=== PATIENT | male | born 2000 | race Caucasian/White ===

== ENCOUNTER 2025-06-06 08:52 | Outpatient (CLI) | payer OTHER, SELFPAY ==
--- OUTSIDE RECORDS SUMMARY | 2025-06-06 09:02 | XMS_ITS | Continuity of Care Document ---
Author Organization [facility] Address [address] [place] [address] Phone Care Team Providers Care Calender Wind Up Helper Name Role Phone Brittni Guillaume Unavailable Unavailable Advance Directives Directive Yes / No Effective Date File Name No Information Encounters Encounter Description Practice Location Reason(s) For Visit Diagnoses Date Provider Providers Copied on Encounter [facility], [address], [place], [place], [id number], [place] tel:[phone] [facility] No Information [id number] Aundrea Elkins. [address] , [address], [place], [address], [place]. tel:[phone] Family History Family Member Type Diagnosis Age At Onset No Information Payers Payer name Insurance type Covered democrat ID Authoriza tion(s) No Information Social History Type Description Quantity Date Captured Comments Sex Male Smoking Status No Information Chief Complaint And Reason For Visit No Information Reason For Referral Reason For Referral No Information History Of Present Illness Encounter Date Complaint History Of Prese nt Illness No Information Functional Status Date Functional Assessmen t No Information Instructions Date Instruction Additional Infor mation No Information Assessments Type Assessment Date No Information Patient Care Teams Name Effective Dates (start - stop) Status Members No Information
--- OUTSIDE RECORDS SUMMARY | 2025-06-06 09:02 | XMS_ITS | Continuity of Care Document ---
Author Name [facility] Organization [facility] Care Team Providers Care Retouching Operator Name Role Phone [facility] Unavailable Unavailable Problems Combined list of problems from Department of Defense and Veterans Affairs facilities. It does not include entries that were removed or entered in error. Problem Status Onset Date Problem Type Date of Resolution Comments Source Hypermetropia, bilateral Active 10/22/18 99 Condition [facility]D Monocular esotropia, right eye Active 10/22/18 99 Condition DoD Other intervertebral disc displacement, lumbosacral region Active 10/21/18 99 Condition DoD Meralgia paresthetica, left lower limb Active 10/21/18 99 Condition [facility]D Low back pain, unspecified Active 10/21/18 99 Condition DoD Male infertility, unspecified Active 10/21/18 99 Condition [facility] Bilateral regular astigmatism Active Condition [facility] Post-traumatic stress disorder, chronic Active Condition [facility] LBP - Low back pain Active Condition 10 [facility] Left knee pain Active Condition [facility] Lumbar disc prolapse with radiculopathy Active Condition [facility] Male infertility Active Condition [facility] Paresthesia of lower limb Active Condition [facility] Tension headache Active Condition [facility] Chronic back pain Active Condition [facility] Exposure to potentially hazardous substance ([facility] [id number]) Active Condition May 29 5 Entered By: DEE TAM Comment: Entered automatically through [facility] Problem List documentation program [facility] Gastroesophageal reflux disease Active Condition [facility] Migraine Active Condition [facility] Regular astigmatism, bilateral Active Condition [facility] Diagnosis: ICD-10-CM G43.109 Migraine with aura, not intractable, w/o status migrainosus Active Diagnosis [facility] Diagnosis: ICD-10-CM Z71.89 Other specified counseling Active Diagnosis [facility] Diagnosis: ICD-10-CM G43.119 Migraine with aura, intractable, without status migrainosus Active Diagnosis [facility] Diagnosis: ICD-10-CM Z71.9 Counseling, unspecified Active Diagnosis [facility] Medications Combined list of outpatient medications from Department of Defense and Veterans Affairs facilities.Medications provided include 1) outpatient medications from the last 15 months, and 2) patient-reported medications. Medication Details Route Status Patient Instructions Prescription Expires Prescription Number Last Dispense Date Ordering Provider Order Date Order Qty Source CeleBREX 200 mg oral capsule 1 cap(s), Oral, Daily, # 45 cap(s), 1 total refill(s ), Maintena nce, Pharmacy : [facility] Oral (given by mouth) Discont inued 04/30/2024 3 2023 45.0 [facility] celecoxib 100 mg oral capsule TAKE ONE CAPSULE BY MOUTH EVERY DAY (MAY INCREASE TO TWICE A DAY NEEDED PAIN), # 45 EA, 2 total refill(s ), Acute Complet ed 07/22/2023 3 2022 45.0 Ambulat ory Pharmac y DULoxetine 60 mg oral delayed release capsule TAKE ONE CAPSULE BY MOUTH EVERY DAY, # 30 EA, 1 total refill(s ), Acute Complet ed 07/22/2023 3 2022 30.0 Ambulat ory Pharmac y ketoconazol e 2% topical shampoo APPLY TO AFFECTED AREAS EVERY DAY DIRECTED , # 120 mL, 2 total refill(s ), Acute Complet ed 07/22/2023 3 2022 120.0 Ambulat ory Pharmac y pregabalin 75 mg oral capsule 1 cap(s), Oral, BID, Increase to 1 cap in AM and 2 caps in PM after 1 week; then 2 caps in AM and PM after 1 week (300mg daily), # 180 cap(s), 3 total refill(s ), Maintena nce, Up-titra ting to total daily dose 300mg, Pharmacy : [facility] Oral (given by mouth) Complet ed 09/30/2023 3 2022 180.0 [facility] pregabalin 75 mg oral capsule 80 cap(s), 0 Refill(s ), 0 total refill(s ), Soft Stop Discont inued 09/30/20232022 [facility] Refresh Dry Eye Therapy Eye-Both , PRN allergy symptoms , 0 total refill(s ), Maintena nce Both eyes Discont inued 04/30/20242023 [facility] Refresh Plus 0.5% ophthalmic solution UD See Instruct ions, PRN dry eyes, Instill 1 drop in each eye as needed for dryness, # 30 EA, 11 total refill(s ), Maintena nce, Can substitu te for like formulat ion, Pharmacy : [facility] Ordered 4 2023 30.0 [facility] SUMATRIPTAN SUCCINATE 25MG TAB TAKE ONE TABLET BY MOUTH ONE-TIME FOR MIGRAINE HEADACHE TAKE AT ONSET OF HEADACHE . MAY REPEAT AFTER 2 HOURS. NOT TO EXCEED 2 TABLETS IN 24 HOURS. ORAL ACTIVE 06/23/2025 [id number] ANTHONY KNOTT AMMAD T 2024 9 [facility] Allergies, Adverse Reactions, Alerts Combined list of allergies from Department of Defense and Veterans Affairs facilities. It does not include entries that were removed or entered in error. Substance Category Reaction Severity Reaction type Status Date Reported Comments Source No Known Allergies Drug allergy (disorder) active 07/28/2017 Homero MIGUEL, Bharat [place] Immunizations Combined list of available immunizations from the Department of Defense and Veterans Affairs facilities. Immunization Series Date Given Administered By Site Reaction Lot Number CVX Code Drug Appointment Clerk Status Comments Source influenza virus vaccine, inactivated 2022 SANKET Sandoval jamey, left (delt oid) [id number] 158 Laura, A [employer] complet ed influenza virus vaccine, inactivat ed 07/26/23 Given [facility] influenza, injectable, quadrivalent- pf 2022 EMILIE CASAS [id number] 150 complet ed Result Comment: Route: Unknown Manufactu rer: OTH (SEQ) [facility] Human Papillomaviru s 9-valent vaccine 2022 [id number] 165 Merck & Company Inc complet ed Human Papilloma virus 9-valent vaccine 01/26/23 Given Ambulat ory Pharmac y Human Papillomaviru s 9-valent vaccine 2022 zzRig ht Arm [id number] 165 Merck & Company Inc complet ed Human Papilloma virus 9-valent vaccine 01/26/23 Given Ambulat ory Pharmac y Human Papillomaviru s 9-valent vaccine 2 2022 YESSICA ROBLEDO [id number] 165 Merck (MSD) complet ed Human Papilloma virus 9-valent vaccine DoD Human Papillomaviru s 9-valent vaccine 2022 zzLef t Arm [id number] 165 ImmuRx & Company Inc complet ed Human Papilloma virus 9-valent vaccine 11/24/22 Given Ambulat ory Pharmac y Human Papillomaviru s 9-valent vaccine 1 2022 YVES DAN [id number] 165 Merck (MSD) complet ed Human Papilloma virus 9-valent vaccine DoD influenza, injectable, quadrivalent- pf 2021 zzRig ht Arm [id number] 150 GlaxAciex TherapeuticsithKli ne complet ed influenza , injectabl e, quadrival ent-pf 08/17/22 Given Ambulat ory Pharmac y COVID Vaccine Moderna 2020 zzLef t Arm [id number] 207 complet ed COVID Vaccine Moderna 10/09/21 Given Ambulat ory Pharmac y COVID Vaccine Moderna 2020 [id number] complet ed COVID Vaccine Moderna 10/09/21 Given Ambulat ory Pharmac y SARS-COV-2 (COVID-19) vaccine, mRNA, spike protein, LNP, preservative free, 100 mcg or 50 mcg dose 3 2020 GUERRERO DUONG [id number] 207 Moderna [place], Inc. (MOD) complet ed SARS-COV- 2 (COVID-19 ) vaccine, mRNA, spike protein, LNP, preservat tom free, 100 mcg or 50 mcg dose DoD influenza, injectable, quadrivalent- pf 2020 zzRig ht Arm [id number] 150 GlaxoSmithKli ne complet ed influenza , injectabl e, quadrival ent-pf 09/09/21 Given Ambulat ory Pharmac y influenza, injectable, quadrivalent- pf 2020 [id number] 150 GlaxoSmithKli ne complet ed influenza , injectabl e, quadrival ent-pf 09/09/21 Given Ambulat ory Pharmac y Influenza, injectable, quadrivalent, preservative free 1 2020 ADAL VALENCIA [id number] 150 [facility] ([facility]) complet ed Influenza , injectabl e, quadrival ent, preservat tom free DoD COVID Vaccine Moderna 2020 TRS 207 complet ed COVID Vaccine Moderna 03/03/21 Given Ambulat ory Pharmac y COVID Vaccine Moderna 2020 TRS 207 complet ed COVID Vaccine Moderna 03/03/21 Given Ambulat ory Pharmac y COVID-19, mRNA, LNP-S, PF, 100 mcg or 50 mcg dose 2020 BRITTANY Moderna US, Inc. (MOD) Not Given COVID-19, mRNA, LNP-S, PF, 100 mcg or 50 mcg dose DoD SARS-COV-2 (COVID-19) vaccine, mRNA, spike protein, LNP, preservative free, 100 mcg or 50 mcg dose 0 2020 Unknown, Provider TRS 207 Moderna [place], Inc. (MOD) complet ed SARS-COV- 2 (COVID-19 ) vaccine, mRNA, spike protein, LNP, preservat tom free, 100 mcg or 50 mcg dose DoD influenza, injectable, quadrivalent- pf 2020 Brandon t Arm [id number] 150 Seq[employer] complet ed influenza , injectabl e, quadrival ent-pf 02/06/21 Given Ambulat ory Pharmac y influenza virus vaccine, inactivated 2020 [id number] 88 [employer] complet ed influenza virus vaccine, inactivat ed 02/06/21 Given Ambulat ory Pharmac y influenza virus vaccine, inactivated 2020 [id number] 88 [employer] complet ed influenza virus vaccine, inactivat ed 02/06/21 Given Ambulat ory Pharmac y Influenza, injectable, Madin Stephany Canine Kidney, quadrivalent with preservative 1 2020 [id number] 660 186 [employer] (SEQ) complet ed Influenza , injectabl e, Madin Stephany Canine Kidney, quadrival ent with preservat tom DoD Influenza, injectable, quadrivalent, preservative free 1 2020 WILBERT MAJANO [id number] 660 150 [employer] (SEQ) complet ed Influenza , injectabl e, quadrival ent, preservat tom free DoD COVID Vaccine Moderna 2020 TRS 207 complet ed COVID Vaccine Moderna 02/03/21 Given Ambulat ory Pharmac y COVID Vaccine Moderna 2020 TRS 207 complet ed COVID Vaccine Moderna 02/03/21 Given Ambulat ory Pharmac y COVID-19, mRNA, LNP-S, PF, 100 mcg or 50 mcg dose 2020 WILLIE, () Not Given COVID-19, mRNA, LNP-S, PF, 100 mcg or 50 mcg dose DoD SARS-COV-2 (COVID-19) vaccine, mRNA, spike protein, LNP, preservative free, 100 mcg or 50 mcg dose 0 2020 Unknown, Provider TRS 207 Moderna [employer] Inc[employer] (MOD) complet ed SARS-COV- 2 (COVID-19 ) vaccine, mRNA, spike protein, LNP, preservat tom free, 100 mcg or 50 mcg dose DoD influenza, injectable, quadrivalent 2018 [id number] 158 [employer] complet ed influenza , injectabl e, quadrival ent 09/28/19 Given Ambulat ory Pharmac y influenza, injectable, quadrivalent 2018 [id number] 507 158 [employer] complet ed influenza , injectabl e, quadrival ent 09/28/19 Given Ambulat ory Pharmac y influenza, injectable, quadrivalent, contains preservative 1 2018 [id number] 507 158 Se[employer] (SEQ) complet ed influenza , injectabl e, quadrival ent, contains preservat tom DoD anthrax vaccine 2018 [id number] [employer] complet ed anthrax vaccine 05/18/19 Given Ambulat ory Pharmac y anthrax vaccine 2018 [id number] 24 [employer] complet ed anthrax vaccine 05/18/19 Given Ambulat ory Pharmac y anthrax vaccine 3 2018 [id number] 24 [employer] [place] (MIP) complet ed anthrax vaccine DoD anthrax vaccine 2017 zzLef t Arm [id number] 24 [employer] complet ed anthrax vaccine 07/07/18 Given Ambulat ory Pharmac y poliovirus vaccine, inactivated 2017 [id number] 10 sanofi pasteur complet ed polioviru s vaccine, inactivat ed 07/07/18 Given Ambulat ory Pharmac y anthrax vaccine 2017 [id number] 24 [employer] complet ed anthrax vaccine 07/07/18 Given Ambulat ory Pharmac y poliovirus vaccine, inactivated 2017 [id number] 10 sanofi pasteur complet ed polioviru s vaccine, inactivat ed 07/07/18 Given Ambulat ory Pharmac y influenza, injectable, quadrivalent [facility] [id number] 158 [employer] complet ed influenza , injectabl e, quadrival ent 07/07/18 Given Ambulat ory Pharmac y poliovirus vaccine, inactivated 2 2017 [id number] 10 Sanofi Pasteur ([facility]) complet ed polioviru s vaccine, inactivat ed DoD anthrax vaccine 2 2017 [id number] 24 [employer] [place] ([facility]) complet ed anthrax vaccine DoD influenza, injectable, quadrivalent, contains preservative 1 2017 [id number] 1A 158 Se[employer] (SEQ) complet ed influenza , injectabl e, quadrival ent, contains preservat tom DoD typhoid Vi capsular polysaccharid e vac 2017 zzArturo ht Arm [id number] 101 sanofi pasteur complet ed typhoid Vi capsular polysacch aride vac 03/24/18 Given Ambulat ory Pharmac y typhoid Vi capsular polysaccharid e vac 2017 [id number] 101 sanofi pasteur complet ed typhoid Vi capsular polysacch aride vac 03/24/18 Given Ambulat ory Pharmac y anthrax vaccine 2017 [id number] 24 [employer] complet ed anthrax vaccine 03/24/18 Given Ambulat ory Pharmac y anthrax vaccine 2017 zzLef t Arm [id number] 24 Unknown complet ed anthrax vaccine 03/24/18 Given Ambulat ory Pharmac y anthrax vaccine 1 2017 IRIS WALKER [id number] 24 Unknown (UNK) complet ed anthrax vaccine DoD typhoid Vi capsular polysaccharid e vaccine 1 2017 IRIS WALKER [id number] 101 Sanofi Pasteur ([facility]) complet ed typhoid Vi capsular polysacch aride vaccine DoD hepatitis A-hepatitis B vaccine 2017 zzLef t Arm [id number] 104 GlaxoSmithKli ne complet ed hepatitis A-hepatit is B vaccine 01/27/18 Given Ambulat ory Pharmac y hepatitis A-hepatitis B vaccine 2017 [id number] 104 GlaxoSmithKli ne complet ed hepatitis A-hepatit is B vaccine 01/27/18 Given Ambulat ory Pharmac y hepatitis A-hepatitis B vaccine 2017 [id number] 104 GlaxoSmithKli ne complet ed hepatitis A-hepatit is B vaccine 01/27/18 Given Ambulat ory Pharmac y hepatitis A and hepatitis B vaccine 3 2017 YASMINE ROCHA [id number] 104 [facility] ([facility]) complet ed hepatitis A and hepatitis B vaccine DoD Influenza, inj, MDCK, quadrivalent- pf 2016 [id number] 171 Se[employer] complet ed Influenza , inj, MDCK, quadrival ent-pf 08/30/17 Given Ambulat ory Pharmac y Influenza, inj, MDCK, quadrivalent- pf 2016 [id number] 171 Se[employer] complet ed Influenza , inj, MDCK, quadrival ent-pf 08/30/17 Given Ambulat ory Pharmac y Influenza, injectable, Madin [place] Canine Kidney, preservative free, quadrivalent 1 2016 [id number] 171 Se[employer] (SEQ) comple t ed Influenza , injectabl e, Madin Stephany Canine Kidney, preservat tom free, quadrival ent DoD measles, mumps and rubella virus vaccine 1 2016 UNK 03 Unknown (UNK) Not Given measles, mumps and rubella virus vaccine DoD hepatitis A-hepatitis B vaccine 2016 [id number] 104 GlaxoSmithKli ne complet ed hepatitis A-hepatit is B vaccine 07/28/17 Given Ambulat ory Pharmac y hepatitis A-hepatitis B vaccine 2016 [id number] 104 GlaxoSmithKli ne complet ed hepatitis A-hepatit is B vaccine 07/28/17 Given Ambulat ory Pharmac y hepatitis A-hepatitis B vaccine 2016 [id number] 104 [employer] - Dein [employer] im LebenithKli ne complet ed hepatitis A-hepatit is B vaccine 07/28/17 Given Ambulat ory Pharmac y varicella virus vaccine 2016 [id number] 21 Merck & Company Inc complet ed varicella virus vaccine 07/28/17 Given Ambulat ory Pharmac y varicella virus vaccine 2016 [id number] 21 Merck & Company Inc complet ed varicella virus vaccine 07/28/17 Given Ambulat ory Pharmac y varicella virus vaccine 2 2016 [id number] 21 Merck (MSD) complet ed varicella virus vaccine DoD hepatitis A and hepatitis B vaccine 2 2016 [id number] 104 [facility] ([facility]) complet ed hepatitis A and hepatitis B vaccine DoD adenovirus vaccine, live 2016 [id number] 143 Teva Pharmaceutica ls complet ed adenoviru s vaccine, live 06/24/17 Given Ambulat ory Pharmac y hepatitis A-hepatitis B vaccine 2016 [id number] 104 Teva Pharm[employer] ls complet ed hepatitis A-hepatit is B vaccine 06/24/17 Given Ambulat ory Pharmac y varicella virus vaccine 2016 [id number] 21 Merck & Company Inc complet ed varicella virus vaccine 06/24/17 Given Ambulat ory Pharmac y hepatitis A-hepatitis B vaccine 2016 [id number] 104 Teva Pharmaceutica ls complet ed hepatitis A-hepatit is B vaccine 06/24/17 Given Ambulat ory Pharmac y adenovirus vaccine, live 2016 [id number] 5 143 Teva Pharmaceutica ls complet ed adenoviru s vaccine, live 06/24/17 Given Ambulat ory Pharmac y hepatitis A-hepatitis B vaccine 2016 [id number] 104 Teva Pharmaceutica ls complet ed hepatitis A-hepatit is B vaccine 06/24/17 Given Ambulat ory Pharmac y varicella virus vaccine 2016 [id number] 21 Merck & Company Inc complet ed varicella virus vaccine 06/24/17 Given Ambulat ory Pharmac y varicella virus vaccine 1 2016 [id number] 21 Merck (MSD) complet ed varicella virus vaccine DoD hepatitis A and hepatitis B vaccine 1 2016 [id number] 104 [facility] ([facility]) complet ed hepatitis A and hepatitis B vaccine DoD Adenovirus, type 4 and type 7, live, oral 1 2016 [id number] 5 143 [facility] ([facility]) complet ed Adenoviru s, type 4 and type 7, live, oral DoD meningococcal A,C,Y,W-135 (MCV4P) 2016 [id number] 114 [employer] complet ed meningoco ccal A,C,Y,W-1 35 (MCV4P) 06/22/17 Given Ambulat ory Pharmac y tetanus, diphtheria, acellular pertu is 2016 [id number] 115 sanofi pasteur complet ed tetanus, diphtheri a, acellular pertussis 06/22/17 Given Ambulat ory Pharmac y poliovirus vaccine, inactivated 2016 [id number] 10 sanofi pasteur complet ed polioviru s vaccine, inactivat ed 06/22/17 Given Ambulat ory Pharmac y tetanus, diphtheria, acellular pertu is 2016 [id number] 115 sanofi pasteur complet ed tetanus, diphtheri a, acellular pertussis 06/22/17 Given Ambulat ory Pharmac y meningococcal A,C,Y,W-135 (MCV4P) 2016 [id number] 114 [employer] complet ed meningoco ccal A,C,Y,W-1 35 (MCV4P) 06/22/17 Given Ambulat ory Pharmac y poliovirus vaccine, inactivated 1 2016 [id number] 10 Sanofi Pasteur ([facility]) complet ed polioviru s vaccine, inactivat ed DoD meningococcal polysaccharid e (groups A, C, Y and W-135) diphtheria toxoid conjugate vaccine (MCV4P) 1 2016 [id number] 114 [employer] (SEQ) comple t ed meningoco ccal polysacch aride (groups A, C, Y and W-135) diphtheri a toxoid conjugate vaccine (MCV4P) DoD tetanus toxoid, reduced diphtheria toxoid, and acellular pertu is vaccine, adsorbed 1 2016 [id number] 115 Sanofi Pasteur ([facility]) complet ed tetanus toxoid, reduced diphtheri a toxoid, and acellular pertussis vaccine, adsorbed DoD Results Combined list of recent chemistry, hematology and other laboratory results from Department of Defense and Veterans Affairs, ranging from 15 months to all on record, depending upon the facility. Order Name Results Value Reference Range Date Interpretation Specimen Comments Source LIPID PANEL (STL) CHOLESTERO L [MASS/VOLU ME] IN SERUM OR PLASMA 185 mg/dL 0 - 200 05/14 Specimen Type: PLASMA Comment: No hemolysis noted. Ordering Provider: SUKUMAR KNOTT Report Released Date/Time: May 08, 2025 11:40 AM Reporting Lab: [facility] [address] [facility] [phone] Performing Lab: [facility] [address] [facility] [phone] [facility] LIPID PANEL (STL) TRIGLYCERI DE [MASS/VOLU ME] IN SERUM OR PLASMA 72 mg/dL 0 - 150 05/14 Specimen Type: PLASMA Comment: No hemolysis noted. Ordering Provider: SUKUMAR KNOTT Report Released Date/Time: May 08, 2025 11:40 AM Reporting Lab: [facility] [address] [facility] [phone] Performing Lab: [facility] [address] [facility] [phone] [facility] LIPID PANEL (STL) CHOLESTERO L IN LDL [MASS/VOLU ME] IN SERUM OR PLASMA BY MARY Esposito 117 mg/dL 05/14 Specimen Type: PLASMA Comment: No hemolysis noted. Ordering Provider: SUKUMAR KNOTT Report Released Date/Time: May 08, 2025 11:40 AM Reporting Lab: [facility] [address] [facility] [phone] Performing Lab: [facility] [address] [facility] [phone] [facility] LIPID PANEL (STL) CHOLESTERO L IN HDL [MASS/VOLU ME] IN SERUM OR PLASMA 54 mg/dL 40 05/14 Specimen Type: PLASMA Comment: No hemolysis noted. Ordering Provider: SUKUMAR KNOTT Report Released Date/Time: May 08, 2025 11:40 AM Reporting Lab: [facility] [address] [facility] [phone] Performing Lab: [facility] [address] [facility] [phone] [facility] CBC LEUKOCYTES [#/VOLUME] IN BLOOD BY AUTOMATED COUNT 4.1 10*3/uL 3.6 - 11.2 05/14 Specimen Type: BLOOD No comment entered. Ordering Provider: SUKUMAR KNOTT Report Released Date/Time: May 08, 2025 11:40 AM Reporting Lab: [facility] [address] [place] [phone] Performing Lab: [facility] [address] [place] [phone] [facility] CBC ERYTHROCYT ES [#/VOLUME] IN BLOOD BY AUTOMATED COUNT 5.21 10*6/uL 4.10 - 5.70 05/14 Specimen Type: BLOOD No comment entered. Ordering Provider: SUKUMAR KNOTT Report Released Date/Time: May 08, 2025 11:40 AM Reporting Lab: [facility] [address] [place] [phone] Performing Lab: [address] [phone] [facility] CBC HEMOGLOBIN [MASS/VOLU ME] IN BLOOD 15.2 g/dL 13.1 - 16.8 05/14 Specimen Type: BLOOD No comment entered. Ordering Provider: SUKUMAR KNOTT Report Released Date/Time: May 08, 2025 11:40 AM Reporting Lab: [facility] [address] [place] [phone] Performing Lab: [facility] [address] [place] [phone] [facility] CBC HEMATOCRIT [VOLUME FRACTION] OF BLOOD 44.9 38.2 - 48.4 05/14 Specimen Type: BLOOD No comment entered. Ordering Provider: SUKUMAR KNOTT Report Released Date/Time: May 08, 2025 11:40 AM Reporting Lab: [facility] [address] [place] [phone] Performing Lab: [facility] [address] [place] [phone] [facility] CBC MCV [ENTITIC VOLUME] BY AUTOMATED COUNT 86.2 fL 80.0 - 100.0 05/14 Specimen Type: BLOOD No comment entered. Ordering Provider: SUKUMAR KNOTT Report Released Date/Time: May 08, 2025 11:40 AM Reporting Lab: [address] [phone] Performing Lab: [facility] [address] [place] [phone] [facility] CBC MCH [ENTITIC MASS] BY AUTOMATED COUNT 29.2 pg 27.0 - 34.0 05/14 Specimen Type: BLOOD No comment entered. Ordering Provider: SUKUMAR KNOTT Report Released Date/Time: May 08, 2025 11:40 AM Reporting Lab: [address] [phone] Performing Lab: [address] [phone] [facility] CBC MCHC [MASS/VOLU ME] BY AUTOMATED COUNT 33.9 g/dL 33.0 - 36.0 05/14 Specimen Type: BLOOD No comment entered. Ordering Provider: SUKUMAR KNOTT Report Released Date/Time: May 08, 2025 11:40 AM Reporting Lab: [facility] [address] [place] [phone] Performing Lab: [facility] [address] [place] [phone] [facility] CBC PLATELETS [#/VOLUME] IN BLOOD BY AUTOMATED COUNT 347 10*3/uL 150 - 400 05/14 Specimen Type: BLOOD No comment entered. Ordering Provider: SUKUMAR KNOTT Report Released Date/Time: May 08, 2025 11:40 AM Reporting Lab: [address] [address] Performing Lab: [place] [id number] [facility] [phone] [facility] CBC PLATELET MEAN VOLUME [ENTITIC VOLUME] IN BLOOD BY AUTOMATED COUNT 9.9 fL 7.5 - 11.2 05/14 Specimen Type: BLOOD No comment entered. Ordering Provider: SUKUMAR KNOTT Report Released Date/Time: May 08, 2025 11:40 AM Reporting Lab: [facility] [address] [place] [phone] Performing Lab: [facility] [address] [place] [phone] [facility] CBC ERYTHROCYT E DISTRIBUTI ON WIDTH [RATIO] BY AUTOMATED COUNT 11.8 11.8 - 15.1 05/14 Specimen Type: BLOOD No comment entered. Ordering Provider: SUKUMAR KNOTT Report Released Date/Time: May 08, 2025 11:40 AM Reporting Lab: [facility] [address] [place] [phone] Performing Lab: [facility] [address] [place] [phone] [facility] CBC LYMPHOCYTE S/100 LEUKOCYTES IN BLOOD BY AUTOMATED COUNT 41 05/14 Specimen Type: BLOOD No comment entered. Ordering Provider: SUKUMAR KNOTT Report Released Date/Time: May 08, 2025 11:40 AM Reporting Lab: [facility] [address] [place] [phone] Performing Lab: [facility] [address] [place] [phone] [facility] CBC MONOCYTES/ 100 LEUKOCYTES IN BLOOD BY AUTOMATED COUNT 11 05/14 Specimen Type: BLOOD No comment entered. Ordering Provider: SUKUMAR KNOTT Report Released Date/Time: May 08, 2025 11:40 AM Reporting Lab: [facility] [address] [place] [phone] Performing Lab: [facility] [address] [place] [phone] [facility] CBC NEUTROPHIL S/100 LEUKOCYTES IN BLOOD BY AUTOMATED COUNT 46 05/14 Specimen Type: BLOOD No comment entered. Ordering Provider: SUKUMAR KNOTT Report Released Date/Time: May 08, 2025 11:40 AM Reporting Lab: [facility] [address] [facility] [phone] Performing Lab: [facility] [address] [place] [phone] [facility] CBC EOSINOPHIL S/100 LEUKOCYTES IN BLOOD BY AUTOMATED COUNT 1 05/14 Specimen Type: BLOOD No comment entered. Ordering Provider: SUKUMAR KNOTT Report Released Date/Time: May 08, 2025 11:40 AM Reporting Lab: [facility] [address] [place] [phone] Performing Lab: [facility] [address] [place] [phone] CBC BASOPHILS/ 100 LEUKOCYTES IN BLOOD BY AUTOMATED COUNT 1 05/14 Specimen Type: BLOOD No comment entered. Ordering Provider: SUKUMAR KNOTT Report Released Date/Time: May 08, 2025 11:40 AM Reporting Lab: [facility] [address] [place] [phone] Performing Lab: [facility] [address] [place] [phone] [facility] CBC LYMPHOCYTE S [#/VOLUME] IN BLOOD BY AUTOMATED COUNT 1.67 10*3/uL 0.77 - 4.50 05/14 Specimen Type: BLOOD No comment entered. Ordering Provider: SUKUMAR KNOTT Report Released Date/Time: May 08, 2025 11:40 AM Reporting Lab: [facility] [address] [place] [phone] Performing Lab: [facility] [address] [place] [phone] [facility] CBC MONOCYTES [#/VOLUME] IN BLOOD BY AUTOMATED COUNT 0.45 10*3/uL 0.19 - 0.80 05/14 Specimen Type: BLOOD No comment entered. Ordering Provider: SUKUMAR KNOTT Report Released Date/Time: May 08, 2025 11:40 AM Reporting Lab: [facility] [address] [place], [place] [phone] Performing Lab: [facility] [address] [place] [phone] [facility] CBC NEUTROPHIL S [#/VOLUME] IN BLOOD BY AUTOMATED COUNT 1.88 10*3/uL 2.10 - 8.00 05/14 L Specimen Type: BLOOD No comment entered. Ordering Provider: SUKUMAR KNOTT Report Released Date/Time: May 08, 2025 11:40 AM Reporting Lab: [facility] [address] [place] [phone] Performing Lab: [address] [phone] [place] [address] CBC EOSINOPHIL S [#/VOLUME] IN BLOOD BY AUTOMATED COUNT 0.04 10*3/uL 0.00 - 0.60 05/14 Specimen Type: BLOOD No comment entered. Ordering Provider: SUKUMAR KNOTT Report Released Date/Time: May 08, 2025 11:40 AM Reporting Lab: [facility] [address] [place] [phone] Performing Lab: [address] [phone] [place] [address] CBC BASOPHILS [#/VOLUME] IN BLOOD BY AUTOMATED COUNT 0.02 10*3/uL 0.00 - 0.20 05/14 Specimen Type: BLOOD No comment entered. Ordering Provider: SUKUMAR KNOTT Report Released Date/Time: May 08, 2025 11:40 AM Reporting Lab: [facility] [address] [place] [phone] Performing Lab: [facility] [address] [place] [phone] [facility] HGA1C HEMOGLOBIN A1C/HEMOGL OBIN.TOTAL IN BLOOD 5.4 4.0 - 6.0 05/14 Specimen Type: BLOOD No comment entered. Ordering Provider: SUKUMAR KNOTT Report Released Date/Time: May 08, 2025 11:40 AM Reporting Lab: [facility] [address] [place] [phone] Performing Lab: [facility] [address] [place] [phone] [place] [address] TSH W/ REFLEX FT4 (STL) THYROTROPI N [UNITS/VOL UME] IN SERUM OR PLASMA 0.424 u[IU]/mL 0.47 - 5 05/14 L Specimen Type: PLASMA No comment entered. Ordering Provider: SUKUMAR KNOTT Report Released Date/Time: May 08, 2025 11:40 AM Reporting Lab: [facility] [address] [place] [phone] Performing Lab: [address] [phone] [place] [address] TSH W/ REFLEX FT4 (STL) FREE T4(REFLEX) 0.96 ng/mL 0.7 - 1.48 05/14 Specimen Type: PLASMA No comment entered. Ordering Provider: SUKUMAR KNOTT Report Released Date/Time: May 08, 2025 11:40 AM Reporting Lab: [facility] [address] [place] [phone] Performing Lab: [address] [phone] [place] [address] VITAMIN D, 25-HYDRO XY 25-HYDROXY VITAMIN D3 [MASS/VOLU ME] IN SERUM OR PLASMA 39.2 ng/mL 30 - 96 05/14 Specimen Type: SERUM No comment entered. Ordering Provider: SUKUMAR KNOTT Report Released Date/Time: May 08, 2025 11:40 AM Reporting Lab: [facility] [address] [place] [phone] Performing Lab: [facility] [address] [place] [phone] [facility] COMPREHE NSIVE METABOLI C PANEL CREATININE [MASS/VOLU ME] IN SERUM OR PLASMA 0.85 mg/dL 0.7 - 1.3 05/14 Specimen Type: PLASMA Comment: No hemolysis noted. Ordering Provider: SUKUMAR KNOTT Report Released Date/Time: May 08, 2025 11:40 AM Reporting Lab: [facility] [address] [facility] [phone] Performing Lab: [facility] [address] [facility] [phone] [facility] COMPREHE NSIVE METABOLI C PANEL UREA NITROGEN [MASS/VOLU ME] IN SERUM OR PLASMA 12.4 mg/dL 9.0 - 25.0 05/14 Specimen Type: PLASMA Comment: No hemolysis noted. Ordering Provider: SUKUMAR KNOTT Report Released Date/Time: May 08, 2025 11:40 AM Reporting Lab: [facility] [address] [facility] [phone] Performing Lab: [facility] [address] [facility] [address] [facility] COMPREHE NSIVE METABOLI C PANEL GLUCOSE [MASS/VOLU ME] IN SERUM OR PLASMA 90 mg/dL 72 - 99 05/14 Specimen Type: PLASMA Comment: No hemolysis noted. Ordering Provider: SUKUMAR KNOTT Report Released Date/Time: May 08, 2025 11:40 AM Reporting Lab: [facility] [address] [facility] [phone] Performing Lab: [facility] [address] [facility] [phone] [facility] COMPREHE NSIVE METABOLI C PANEL SODIUM [MOLES/VOL UME] IN SERUM OR PLASMA 138 meq/L 136 - 145 05/14 Specimen Type: PLASMA Comment: No hemolysis noted. Ordering Provider: SUKUMAR KNOTT Report Released Date/Time: May 08, 2025 11:40 AM Reporting Lab: [facility] [address] [facility] [phone] Performing Lab: [facility] [address] [facility] [address] [facility] COMPREHE NSIVE METABOLI C PANEL POTASSIUM [MOLES/VOL UME] IN SERUM OR PLASMA 4.5 meq/L 3.5 - 5 05/14 Specimen Type: PLASMA Comment: No hemolysis noted. Ordering Provider: SUKUMAR KNOTT Report Released Date/Time: May 08, 2025 11:40 AM Reporting Lab: [facility] [address] [place] [phone] Performing Lab: [facility] [address] [place] [phone] [facility] COMPREHE NSIVE METABOLI C PANEL CHLORIDE [MOLES/VOL UME] IN SERUM OR PLASMA 104 meq/L 98 - 107 05/14 Specimen Type: PLASMA Comment: No hemolysis noted. Ordering Provider: SUKUMAR KNOTT Report Released Date/Time: May 08, 2025 11:40 AM Reporting Lab: [facility] [address] [place] [phone] Performing Lab: [address] [phone] [facility] COMPREHE NSIVE METABOLI C PANEL CARBON DIOXIDE, TOTAL [MOLES/VOL UME] IN SERUM OR PLASMA 27 meq/L 22 - 31 05/14 Specimen Type: PLASMA Comment: No hemolysis noted. Ordering Provider: SUKUMAR KNOTT Report Released Date/Time: May 08, 2025 11:40 AM Reporting Lab: [facility] [address] [place] [phone] Performing Lab: [facility] [address] [place] [phone] [facility] COMPREHE NSIVE METABOLI C PANEL CALCIUM [MASS/VOLU ME] IN SERUM OR PLASMA 9.8 mg/dL 8.4 - 10.4 05/14 Specimen Type: PLASMA Comment: No hemolysis noted. Ordering Provider: SUKUMAR KNOTT Report Released Date/Time: May 08, 2025 11:40 AM Reporting Lab: [facility] [address] [facility] [address] Performing Lab: [facility] [address] [facility] [phone] [facility] COMPREHE NSIVE METABOLI C PANEL PROTEIN [MASS/VOLU ME] IN SERUM OR PLASMA 7.7 g/dL 6 - 8.6 05/14 Specimen Type: PLASMA Comment: No hemolysis noted. Ordering Provider: SUKUMAR KNOTT Report Released Date/Time: May 08, 2025 11:40 AM Reporting Lab: [facility] [address] [facility] [address] Performing Lab: [facility] [address] [place] [phone] [facility] COMPREHE NSIVE METABOLI C PANEL ALBUMIN [MASS/VOLU ME] IN SERUM OR PLASMA 4.8 g/dL 3.4 - 5 05/14 Specimen Type: PLASMA Comment: No hemolysis noted. Ordering Provider: SUKUMAR KNOTT Report Released Date/Time: May 08, 2025 11:40 AM Reporting Lab: [facility] [address] [place] [phone] Performing Lab: [facility] [address] [facility] [phone] [facility] COMPREHE NSIVE METABOLI C PANEL BILIRUBIN. TOTAL [MASS/VOLU ME] IN SERUM OR PLASMA 0.8 mg/dL 0.2 - 1.2 05/14 Specimen Type: PLASMA Comment: No hemolysis noted. Ordering Provider: SUKUMAR KNOTT Report Released Date/Time: May 08, 2025 11:40 AM Reporting Lab: [facility] [address] [place] [phone] Performing Lab: [facility] [address] [place] [phone] [facility] COMPREHE NSIVE METABOLI C PANEL ALKALINE PHOSPHATAS E [ENZYMATIC ACTIVITY/V OLUME] IN SERUM OR PLASMA 60 U/L 40 - 150 05/14 Specimen Type: PLASMA Comment: No hemolysis noted. Ordering Provider: SUKUMAR KNOTT Report Released Date/Time: May 08, 2025 11:40 AM Reporting Lab: [facility] [address] [facility] [address] Performing Lab: [facility] [address] [facility] [phone] [facility] COMPREHE NSIVE METABOLI C PANEL ASPARTATE AMINOTRANS FERASE [ENZYMATIC ACTIVITY/V OLUME] IN SERUM OR PLASMA 29 U/L 5 - 34 05/14 Specimen Type: PLASMA Comment: No hemolysis noted. Ordering Provider: SUKUMAR KNOTT Report Released Date/Time: May 08, 2025 11:40 AM Reporting Lab: [facility] [address] [facility] [address] Performing Lab: [address] [address] [facility] COMPREHE NSIVE METABOLI C PANEL ALANINE AMINOTRANS FERASE [ENZYMATIC ACTIVITY/V OLUME] IN SERUM OR PLASMA 21 U/L 8 - 40 05/14 Specimen Type: PLASMA Comment: No hemolysis noted. Ordering Provider: SUKUMAR KNOTT Report Released Date/Time: May 08, 2025 11:40 AM Reporting Lab: [facility] [address] [facility] [phone] Performing Lab: [facility] [address] [place] [phone] [facility] COMPREHE NSIVE METABOLI C PANEL GLOMERULAR FILTRATION RATE/1.73 SQ M.PREDICTE D [VOLUME RATE/AREA] IN SERUM, PLASMA OR BLOOD BY CREATININE -BASED FORMULA (CKD-EPI 2020) 122.9 60 05/14 Specimen Type: PLASMA Comment: No hemolysis noted. Ordering Provider: SUKUMAR KNOTT Report Released Date/Time: May 08, 2025 11:40 AM Reporting Lab: [facility] [address] [facility] [phone] Performing Lab: [facility] [address] [facility] [address] [facility] URINALYS IS (STL-PB) COLOR OF URINE Light-Ye llow 05/14 Specimen Type: URINE No comment entered. Ordering Provider: SUKUMAR KNOTT Report Released Date/Time: May 08, 2025 11:40 AM Reporting Lab: [address] [address] Performing Lab: [address] [address] [facility] URINALYS IS (STL-PB) BILIRUBIN. TOTAL [PRESENCE] IN URINE BY TEST STRIP Negative mg/dL 05/14 Specimen Type: URINE No comment entered. Ordering Provider: SUKUMAR KNOTT Report Released Date/Time: May 08, 2025 11:40 AM Reporting Lab: [address] [address] Performing Lab: [address] [address] [facility] URINALYS IS (STL-PB) PH OF URINE BY TEST STRIP 7.0 5.0 - 8.0 05/14 Specimen Type: URINE No comment entered. Ordering Provider: SUKUMAR KNOTT Report Released Date/Time: May 08, 2025 11:40 AM Reporting Lab: [address] [address] Performing Lab: [address] [address] [facility] URINALYS IS (STL-PB) LEUKOCYTES [#/AREA] IN URINE SEDIMENT BY MICROSCOPY HIGH POWER FIELD 1 /[HPF] 0 - 5 05/14 Specimen Type: URINE No comment entered. Ordering Provider: SUKUMAR KNOTT Report Released Date/Time: May 08, 2025 11:40 AM Reporting Lab: [address] [address] Performing Lab: [address] [phone] [facility] URINALYS IS (STL-PB) ERYTHROCYT ES [#/VOLUME] IN URINE SEDIMENT BY MICROSCOPY HIGH POWER FIELD 1 /[HPF] 0 - 5 05/14 Specimen Type: URINE No comment entered. Ordering Provider: SUKUMAR KNOTT Report Released Date/Time: May 08, 2025 11:40 AM Reporting Lab: [address] [address] Performing Lab: [place] [phone] [facility] URINALYS IS (STL-PB) APPEARANCE OF URINE Clear 05/14 Specimen Type: URINE No comment entered. Ordering Provider: SUKUMAR KNOTT Report Released Date/Time: May 08, 2025 11:40 AM Reporting Lab: [address] [address] Performing Lab: [address] [address] [facility] URINALYS IS (STL-PB) NITRITE [PRESENCE] IN URINE BY TEST STRIP Negative mg/dL 05/14 Specimen Type: URINE No comment entered. Ordering Provider: SUKUMAR KNOTT Report Released Date/Time: May 08, 2025 11:40 AM Reporting Lab: [address] [address] Performing Lab: [address] [address] [facility] URINALYS IS (STL-PB) MUCUS [PRESENCE] IN URINE SEDIMENT BY LIGHT MICROSCOPY RARE/[LP F] 05/14 Specimen Type: URINE No comment entered. Ordering Provider: SUKUMAR KNOTT Report Released Date/Time: May 08, 2025 11:40 AM Reporting Lab: [address] [address] Performing Lab: [address] [address] [facility] URINALYS IS (STL-PB) GLUCOSE [MASS/VOLU ME] IN URINE BY TEST STRIP Normalmg /dL 05/14 Specimen Type: URINE No comment entered. Ordering Provider: SUKUMAR KNOTT Report Released Date/Time: May 08, 2025 11:40 AM Reporting Lab: [address] [address] Performing Lab: [facility] [address] [place] [phone] [facility] URINALYS IS (STL-PB) PROTEIN [MASS/VOLU ME] IN URINE BY TEST STRIP Negative mg/dL 05/14 Specimen Type: URINE No comment entered. Ordering Provider: SUKUMAR KNOTT Report Released Date/Time: May 08, 2025 11:40 AM Reporting Lab: [address] [address] Performing Lab: [facility] [address] [place] [phone] [facility] URINALYS IS (STL-PB) URN.UROBIL INOGEN Normalmg /dL 05/14 Specimen Type: URINE No comment entered. Ordering Provider: SUKUMAR KNOTT Report Released Date/Time: May 08, 2025 11:40 AM Reporting Lab: [address] [address] Performing Lab: [facility] [address] [place] [phone] [facility] URINALYS IS (STL-PB) HEMOGLOBIN [MASS/VOLU ME] IN URINE BY TEST STRIP Negative mg/dL 05/14 Specimen Type: URINE No comment entered. Ordering Provider: SUKUMAR KNOTT Report Released Date/Time: May 08, 2025 11:40 AM Reporting Lab: [facility] [address] [place] [address] Performing Lab: [facility] [address] [place] [phone] [facility] URINALYS IS (STL-PB) KETONES [MASS/VOLU ME] IN URINE BY TEST STRIP Negative mg/dL 05/14 Specimen Type: URINE No comment entered. Ordering Provider: SUKUMAR KNOTT Report Released Date/Time: May 08, 2025 11:40 AM Reporting Lab: [place] [phone] Performing Lab: [address] [phone] [place] [address] URINALYS IS (STL-PB) URN.LEUK.E ST. Negative mg/dL 05/14 Specimen Type: URINE No comment entered. Ordering Provider: SUKUMAR KNOTT Report Released Date/Time: May 08, 2025 11:40 AM Reporting Lab: [address] [address] Performing Lab: [place] [address] [place] [phone] [place] [address] URINALYS IS (STL-PB) SPECIFIC GRAVITY OF URINE 1.021 05/14 Specimen Type: URINE No comment entered. Ordering Provider: SUKUMAR KNOTT Report Released Date/Time: May 08, 2025 11:40 AM Reporting Lab: [address] [address] Performing Lab: [address] [phone] [place] [address] Infectio us Disease HIV-1/O/2 Non-Reac tive 1 (04/20/24 10:25 AM) 04/20 N Interpretiv e Data: INTERPRETAT ION: This method is a screening procedure for the detection of HIV p24 Antigen and Antibodies to HIV-1, including Group O, and/or HIV-2. NON-REACTIV E: HIV-1 antigen and HIV-1 / HIV-2 antibodies were not detected. No laboratory evidence of HIV infection. A negative test result does not exclude the possibility of exposure to or infection with HIV. HIV antibodies and/or p24 antigen may be undetectabl e in some stages of the infection and in some clinical conditions. If acute HIV infection is suspected, consider submitting another specimen to a reference laboratory for HIV-1 RNA. SCREEN REACTIVE - CONFIRMATIO N TO FOLLOW: Possible presence of HIV-1antibo dies, HIV-2 antibodies and/or HIV-1 p24 antigen. Specimen will reflex to the confirmatio n testing that fulfills the Center for Disease Control and Prevention' s HIV diagnostic algorithm. Refer to [facility] Lab Guide for additional information : [email or web address]. [facility]/ [email or web address]/[email or web address]/EPIL ab/Pages/la b_guide.asp x Testing performed by Tasha thompson [facility] Miscella neous Sendouts Repository Sample Received (04/20/24 10:25 AM) 04/20 Vaib[facility] Urinalys is UA Color Light Yellow (04/20/24 10:25 AM) 04/20 [facility] [facility] Urinalys is UA Leuk Esterase Negative (04/20/24 10:25 AM) 04/20 [facility] [facility] Urinalys is UA Blood Negative (04/20/24 10:25 AM) 04/20 [facility] [facility] Urinalys is UA Clarity Clear (04/20/24 10:25 AM) 04/20 [facility] [facility] Urinalys is UA Micro Ind? Not Indicate d *NA* (04/20/24 10:25 AM) 04/20 [facility] [facility] Urinalys is UA Bili Negative (04/20/24 10:25 AM) 04/20 [facility] [facility] Urinalys is UA Nitrite Negative (04/20/24 10:25 AM) 04/20 [facility] [facility] Urinalys is UA pH 6.0 *NA* (04/20/24 10:25 AM) 04/20 [facility] [facility] Urinalys is UA Protein Negative mg/dL 04/20 [facility] enjose Urinalys is UA Spec [place] 1.010 *NA* (04/20/24 10:25 AM) 04/20 [facility] Urinalys is UA Ketones Negative mg/dL 04/[address] [place] [address] enjose Urinalys is UA Urobilinog en 0.2 E.U./dL 04/[address] [place] [address] ericnancy Urinalys is UA Glucose Negative mg/dL 04/[address] [place], [place] [address]nancy Vital Signs Combined list of inpatient and outpatient Vital Signs from Department of Defense and Veterans Affairs, ranging from 12 months to all on record, depending upon the facility. Vital Sign Value Date Comments Source Respiratory Rate 14 br/min 04/30/2024 11:10:00 [facility] Systolic Blood Pressure 137 mm[Hg] 04/30/2024 11:10:00 [facility] Diastolic Blood Pressure 73 mm[Hg] 04/30/2024 11:10:00 [facility] Temperature Temporal Artery 37 Josy 04/30/2024 11:10:00 [facility] Mean Arterial Pressure, Cuff (Calc) 94 mm[Hg] 04/30/2024 11:10:00 [facility] Peripheral Pulse Rate 80 bpm 04/30/2024 11:10:00 [facility] Peripheral Pulse Rate 88 bpm 09/30/2023 08:05:00 [facility] Mean Arterial Pressure, Cuff (Calc) 94 mm[Hg] 09/30/2023 08:05:00 [facility] Systolic Blood Pressure 124 mm[Hg] 09/30/2023 08:05:00 [facility] Diastolic Blood Pressure 79 mm[Hg] 09/30/2023 08:05:00 [facility] Mean Arterial Pressure, Cuff (Calc) 98 mm[Hg] 12/01/2023 08:22:00 [facility] Peripheral Pulse Rate 85 bpm 12/01/2023 08:22:00 [facility] Systolic Blood Pressure 133 mm[Hg] 12/01/2023 08:22:00 [facility] Diastolic Blood Pressure 81 mm[Hg] 12/01/2023 08:22:00 [facility] Peripheral Pulse Rate 67 bpm 07/22/2023 08:33:00 [facility] Mean Arterial Pressure, Cuff (Calc) 101 mm[Hg] 07/22/2023 08:33:00 [facility] Systolic Blood Pressure 138 mm[Hg] 07/22/2023 08:33:00 [facility] Diastolic Blood Pressure 83 mm[Hg] 07/22/2023 08:33:00 [facility] Encounters Combined list of: 1) Encounters from Department of Veterans Affairs facilities going backup to the last 18 months, not all VA inpatient encounters are included; 2) Encounters from the Department of Defense facilities going backup to 280 months. Location Location Details Encounter Type Encounter Number Reason For Visit Attending Provider ADM Date DC Date Status Disposition Source [place] OUTPATIENT [id number] AMOR IBANEZ 06/23 Released w/o Limitations [place]asad [place]) [place]asad [place] [facility] OUTPATIENT [id number] Notes Entered by: GEORGINA BAPTISTE 23 Jun 2017 1405 ------- ------- ------- ------- -- hearing test PAMELA BAPTISTE 06/23 Released w/o Limitations [place]asad [place] ) [place]ad [place] OUTPATIENT [id number] Notes Entered by: RUPAL LÓPEZ 28 Jul 2017 0806 ------- ------- ------- ------- -- IMM-TWI Vaibhav/JEREMY DOWNS 07/28 Released w/o Limitations [place]asad [place]asad [place] OUTPATIENT [id number] Notes Entered by: KONRAD GARCIA 30 Aug 2017 0729 ------- ------- ------- ------- -- IMM-FLU SHOT DONG LADD 08/30 Released w/o Limitations [place]harat Prasad [place]([facility]) [facility] [place]([facility] Medical Inprocess ing) OUTPATIENT [id number] Notes Entered by: WILBERT ABDI 01 Nov 2017 1026 ------- ------- ------- ------- -- mip WILBERT MAJANO 11/01 Released w/o Limitations [facility] [place]([facility] Medical Inproce [facility]) [facility] [place]([facility] S[facility]) OUTPATIENT [id number] Notes Entered by: YOUNG ONEIL 27 Jan 2018 0928 ------- ------- ------- ------- -- IMMS YASMINE ROCHA 01/27 Released w/o Limitations [facility] [place]([facility] S[facility]) [facility] [place]([facility] [address] OUTPATIENT [id number] cee/MAYRA Little 03/02 Released w/o Limitations [facility] [place] [facility] [facility] [facility] [place] Primary Care) OUTPATIENT [id number] Notes Entered by: SHI FORD 24 Mar 2018 0851 ------- ------- ------- ------- -- NICK CLARK 03/24 Released w/o Limitations [facility] [place] Primary Care) [facility] [place]) TELE CONSULT [id number] Notes Entered by: JOSE CARLOS BARAHONA 25 May 2018 0917 ------- ------- ------- ------- -- form EDENILSON Gasca 05/25 Released w/o Limitations [facility] [place] [facility] [place] TELE CONSULT [id number] Notes Entered by: SHENG IVEY 20 Jun 2018 0944 ------- ------- ------- ------- -- PHA Update- online portion is complet e- [id number] EDENILSON ALVAREZ 06/20 Other Not Elsewhere Classified [facility] [place] [facility] [place] Primary Care) OUTPATIENT [id number] Notes Entered by: AURORA BARNES 07 Jul 2018 1741 ------- ------- ------- ------- -- CAR MEDEROS 07/07 Released w/o Limitations [facility] [place] Primary Care) [facility] [place] [facility] OUTPATIENT [id number] Notes Entered by: RENETTA MAST 18 May 2019 1448 ------- ------- ------- ------- -- Post Deploy ent RADHA DOHERTY 05/18 Released w/o Limitations [facility] [place] [facility] [place] OUTPATIENT [id number] Notes Entered by: RADHA SANTOYO 12 Jun 2019 1231 ------- ------- ------- ------- -- ROCK Suárez 06/12 Released w/o Limitations [facility] [place] [facility] [facility] [place] OUTPATIENT [id number] Physica l- labs complet ed QI DALAL SENOUWOGBE 07/05 Released w/o Limitations [facility] [place] [facility] [place] [facility] [place] OUTPATIENT [id number] ROCK Haas 08/28 Released w/o Limitations [facility] [place] [facility] [place] [facility] [place] [facility] [place] OUTPATIENT [id number] rx check and DFE ROCK PEREZ 10/08 Released w/o Limitations [facility] [place] [facility] [place] [facility] [place] OUTPATIENT [id number] Notes Entered by: Nba VO 06 Nov 2019 1057 ------- ------- ------- ------- -- NICK JAIMES 11/06 Released w/o Limitations [facility] [place] [facility] [place] OUTPATIENT [id number] left hip pain EMMA JIMENEZ H 12/03 [facility]ased w/o Limitations [facility] [place] [place] [facility] [place] OUTPATIENT [id number] L HIP RE EVAL EMMA JIMENEZ H 12/11 Released w/o Limitations [facility] [place] [facility] [place] OUTPATIENT [id number] L HIP FTR EMMA JIMENEZ H 12/14 Released w/o Limitations [facility] [place] [facility] [place] OUTPATIENT [id number] L HIP FTR EMMA JIMENEZ H 12/30 Released w/o Limitations [facility] [place] [facility] [place] OUTPATIENT [id number] F/U LT HIP EMMA JIMENEZ H 01/02 Released w/o Limitations [facility] [place] [facility] OUTPATIENT [id number] F/U LT HIP EMMA JIMENEZ H 01/07 Released w/o Limitations [place] [facility] [place] OUTPATIENT [id number] LT HIP F/U EMMA JIMENEZ H 01/09 [place]ased w/[place] Limitations [place] [facility] [place] OUTPATIENT [id number] PCM-Tor lena: Pt has severe lower pains for 3 days, request s to seen today NICK VANCE 02/04 Released with Work/Duty Limitations [place] OUTPATIENT [id number] Notes Entered by: JESSICA HOFFMANN 14 Aug 2020 1522 ------- ------- ------- ------- -- FMT JESUS HOFFMANN 08/14 [place]ased [place] Limitations [place]IENT [id number] Notes Entered by: RAJANI GOMEZ 18 Aug 2020 1255 ------- ------- ------- ------- -- annual RUPAL JACOB 08/18 Released w/o Limitations [facility] [place] [place] [facility] TELE CONSULT [id number] Notes Entered by: SHENG IVEY 03 Feb 2021 1301 ------- ------- ------- ------- -- Please order labs for Initial FLIGHT LIS Cosby 02/03 Other Not Elsewhere Classified [facility] [place] [place] [place] [facility] [place] OUTPATIENT [id number] Notes Entered by: RADHA SANTOYO 03 Feb 2021 1346 ------- ------- ------- ------- -- initial flight DEMARCUS PEARCE 02/03 Released w/o Limitations [facility] [place] [facility] [place] [facility] OUTPATIENT [id number] Notes Entered by: RADHA SANTOYO 05 Feb 2021 0958 ------- ------- ------- ------- -- long flight ATUL RODRIGUEZ 02/05 Released w/o Limitations [facility] [place] [facility] [place] [facility] OUTPATIENT [id number] Notes Entered by: WILBERT ABDI 06 Feb 2021 0927 ------- ------- ------- ------- -- flu WILBERT MAJANO 02/06 Released w/o Limitations [facility] [place] [facility]) [facility] [place] [facility] OUTPATIENT [id number] ocular motilit y YANN AWAN 02/16 Released w/o Limitations [facility] [place] [facility] 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 CHAGO LANDERS 02/24 Other Not Elsewhere Classified [place] [facility]) [facility] Optometry ) OUTPATIENT [id number] Order Glasses /[id number] DENISHA ACOSTA 04/07 Released w/o Limitations [facility] Optomet ry) [facility](AMHM 01A Gold) OUTPATIENT [id number] 0 f2f initial flight physica l/39166 [id number] REINALDO DIAZ 05/04 Released w/o Limitations [facility](AM[facility] M 01A Gold) [facility] Optometry ) OUTPATIENT [id number] FLIGHT PHYSICA L PRT 02751 04930/H JESSICA HERNANDEZ 05/18 Released w/o Limitations [facility] Optomet [facility]) [facility] 01A Gold) TELE CONSULT [id number] Notes Entered by: PAMELA HOFFMANN 23 Jun 2021 1153 ------- ------- ------- ------- -- PAMELA Snow 06/23 [facility] M 01A Gold) [facility] 01A Gold) OUTPATIENT [id number] 9 f2f f/u flight physica l glenda diaz/ashley boucher/ [id number] REINALDO DIAZ 08/31 Released w/o Limitations [facility](AM[facility] M 01A Gold) [facility](F PC Hearing Conservat ion) OUTPATIENT [id number] CHAGO HUNTER 09/01 Released w/o Limitations [facility] PC Hearing Conserv ation) [facility](AM[facility] 01A Gold) OUTPATIENT [id number] flu vaccine JEANETH- DELMAR MCMANUS 09/09 Released w/o Limitations [facility] M 01A Gold) [facility] 01A Gold) TELE CONSULT [id number] Notes Entered by: DORI CULP 03 Nov 2021 1430 ------- ------- ------- ------- -- Flight SCARLETT Abdalla 11/03 Referred for Appointment [facility] M 01A [facility]) [facility] 01A Gold) OUTPATIENT [id number] 3 f2f flight luis m easley/ adrianna/0 [id number] REINALDO DIAZ 11/05 Released w/o Limitations [facility](AMH M 01A Gold) [facility] Optometry ) OUTPATIENT [id number] Short flight Carmen QUEENCARLENE Nataly 11/17 Released w/o Limitations [facility] Optomet ry) [facility] 01A Gold) OUTPATIENT [id number] Notes Entered by: LISA CLIFFORD 18 Nov 2021 2332 ------- ------- ------- ------- -- Covid-1 9 Booster GUERRERO DUONG 11/18 Released w/o Limitations [facility](AM[facility] M 01A Gold) [facility] 01A Gold) TELE CONSULT [id number] 9 Notes Entered by: SCARLETT CONNER 01 Jan 2022 0957 ------- ------- ------- ------- -- SCARLETT Elliott 01/01 Referred for Appointment [facility] M 01A Gold) [facility] 01A Gold) TELE CONSULT [id number] Notes Entered by: MAIKEL EspositoJANISSCARLETT M 15 Jan 2022 1146 ------- ------- ------- ------- -- Daylin santana SCARLETT WING Destiny 01/15 Referred for Appointment [facility] M 01A Gold) [facility]) OUTPATIENT [id number] Notes Entered by: JAVIER SURESH JR 01 Feb 2022 0819 ------- ------- ------- ------- -- sx flu JAVIER SURESH 02/01 Released w/o Limitations [facility] Multi-S pecialt y Cl) [facility] Optometry ) OUTPATIENT [id number] 3 annual exam, wears glasses and contact s/[id number] [id number] CARLENE QUEEN 04/05 Released w/o Limitations [facility] Optomet ry) [facility] 01A Gold) OUTPATIENT [id number] 6 VT/PHA/ [id number] ROCK ARTHUR 04/06 Released w/o Limitations [facility] M 01A Gold) [facility] Hearing Conservat ion) OUTPATIENT [id number] Notes Entered by: ODILIA BAPTISTE 13 Apr 2022 1411 ------- ------- ------- ------- -- BEBETO Larry 04/13 Released w/o Limitations [facility] PC Hearing Conserv ation) [facility] OUTPATIENT [id number] 3 L leg inj/919 [id number] REINALDO DIAZ 04/16 Released w/o Limitations [facility] M 01A Gold) [facility] OUTPATIENT [id number] 8 f/u neurolo gy, poss MRI refr/cl ay/151 [id number] 9 JULIOCESAR ANN I 06/04 Released w/o Limitations [facility] M 01A Gold) [facility] 01A Gold) TELE CONSULT [id number] Notes Entered by: JHOAN DAY 06 Jul 2022 1127 ------- ------- ------- ------- -- NETWORK RESULTS -LAB CHERIE HAN 07/06 Released to Self Care [facility] M 01A Gold) [facility] TELE CONSULT [id number] Notes Entered by: Jayjay FORD 09 Jul 2022 1053 ------- ------- ------- ------- -- NETWORK RESULTS -NEUROL OGY-05A UG22 DAVI DENT 07/09 [facility](AM[facility] M 01A Gold) [facility](AM[facility] 01A Gold) OUTPATIENT [id number] 6 f2f/PDH RA/151 [id number] ROCK ARTHUR 08/12 Released w/o Limitations [facility](AM[facility] M 01A Gold) [facility] 01A Gold) OUTPATIENT [id number] Notes Entered by: KENJI DAN 17 Aug 2022 1116 ------- ------- ------- ------- -- Flu vaccine YVES DAN 08/17 Released w/o Limitations [facility](AM[facility] M 01A Gold) [facility] 01A Gold) OUTPATIENT [id number] 6 F/U after lower spine MRI/Pos s referra l to neuro/C lay/+49 [id number] ROCK ARTHUR 08/23 Released w/o Limitations [facility] M 01A Gold) [facility] 01A Gold) OUTPATIENT [id number] 4 F2F discuss his flight physica l/packe t submiss ion/Cla 48899 [id number] JENNIFER MUNIZ 09/09 Released w/o Limitations [facility](AM[facility] M 01A Gold) [facility] 01A Gold) OUTPATIENT [id number] 1 f2f/ per neuro provide r f/u/cla 34879 [id number] ROCK ARTHUR 10/20 Released w/o Limitations [facility](AMH M 01A Gold) [facility] 01A Gold) TELE CONSULT [id number] Notes Entered by: YUNIOR PRETTY 16 Nov 2022 0845 ------- ------- ------- ------- -- NETWORK RESULTS -NEUROL OGY-07 OCT 2022 JENNIFER MUNIZ 11/16 [facility] M 01A Gold) [facility] 01A Gold) OUTPATIENT [id number] Tele/Vi [facility]/ [facility] Pain Managem ent/687 [id number] DELMAR ALVAREZ 11/23 Released w/o Limitations [facility](AMH M 01A Gold) [facility]SL Pain Managemen t) OUTPATIENT [id number] 5 VHVS/HH JULIO/alessandro sierra ord@[employer]/ [id number] 5487/gaby 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 hip BETTIE JABIERDOREEN LIU T 11/23 Released w/o Limitations [facility]SL Pain Managem ent) [facility] 01A Gold) OUTPATIENT [id number] Notes Entered by: KENJI DAN 24 Nov 2022 1014 ------- ------- ------- ------- -- HPV vaccine YVES DAN 11/24 Released w/o Limitations [facility](AM[facility] M 01A Gold) [facility] Pain Managemen t) OUTPATIENT [id number] 9 BILAT MBB L4-ALA JABIER ALEXANDRE T 01/19 Released w/o Limitations [facility] Pain Managem ent) [facility] 01A Gold) OUTPATIENT [id number] 5 Notes Entered by: KENJI DAN 26 Jan 2023 1023 ------- ------- ------- ------- -- YESSICA HEARD 01/26 Released w/o Limitations [facility](AM[facility] M 01A Gold) [facility] Pain Managemen t) OUTPATIENT [id number] 9 LEFT L4-ALA RFA JABIER ALEXANDRE T 02/04 Released w/o Limitations [facility] Pain Managem ent) [facility] Pain Managemen t) OUTPATIENT [id number] 8 RIGHT L4-ALA RFA JABIER ALEXANDRE T 02/18 Released w/o Limitations [facility] Pain Managem ent) [facility] Optometry ) OUTPATIENT [id number] 5 annual eye exam/co ntacts+ glasses /310275 [id number] CARLENE QUEEN W 03/03 Released w/o Limitations [facility] Optomet ry) [facility] Pain Managemen t) OUTPATIENT [id number] 9 L L5/S1 TFJABIER WAGGONER T 03/04 Released w/o Limitations [facility] Pain Managem ent) [facility] Pain Managemen t) OUTPATIENT [id number] 6 L L5/S1 TFJABIER WAGGONER T 03/18 Released w/o Limitations [facility] Pain Managem ent) [facility] Pain Managemen t) OUTPATIENT [id number] 4 HC F/U [id number] JABIER ALEXANDRE 03/24 Released w/o Limitations [facility] Pain Managem ent) [facility] 01A Gold) OUTPATIENT [id number] 1 F/U Back procs/M edboard /208753 [id number] JENNIFER MUNIZ 04/21 Released w/o Limitations [facility](AMH M 01A Gold) [facility] 01A Gold) OUTPATIENT [id number] 3 F-U pain managem ent for lower back in LSL/879 [id number] 69 romanian cell ROCK ARTHUR 05/04 Released with Work/Duty Limitations [facility](AMH M 01A Gold) [facility] PC Hearing Conservat ion) OUTPATIENT [id number] Notes Entered by: ODILIA BAPTISTE 11 May 2023 1132 ------- ------- ------- ------- -- Annual hearing exam BEBETO BAPTISTE 05/11 Released w/o Limitations [facility] PC Hearing Conserv ation) [facility] PC Hearing Conservat ion) OUTPATIENT [id number] 8 Notes Entered by: ODILIA BAPTISTE 13 May 2023 0843 ------- ------- ------- ------- -- Annual hearing exam/Fa llow-up BEBETO BAPTISTE 05/13 Released w/o Limitations [facility](F PC Hearing Conserv ation) [facility] 01A Gold) OUTPATIENT [id number] 0 f/u medicat ion evaluat ion check up/lavell /712909 [id number] ROCK ARTHUR 05/18 Released w/o Limitations [facility](AM[facility] M 01A Gold) [facility] 01A Gold) OUTPATIENT [id number] 1 f/u medicat ion evaluat ion check up/lavell /451399 [id number] ROCK ARTHUR 06/01 Released w/o Limitations [facility](AMH M 01A Gold) [facility] 01A Gold) OUTPATIENT [id number] 2 VT/PHA/ [id number] JENNIFER MUNIZ 06/17 Released w/o Limitations [facility](AMH M 01A Gold) [facility]) OUTPATIENT [id number] 3 Notes Entered by: CLIFTON DIMAS 20 Jun 2023 1522 ------- ------- ------- ------- -- CLIFTON Rome 06/20 Released w/o Limitations [facility]) [facility] 01A Gold) OUTPATIENT [id number] 3 f2f.per JENNIFER Stern 07/07 Released w/o Limitations [facility](AM[facility] M 01A Gold) [facility]) OUTPATIENT [id number] Notes Entered by: CLIFTON DIMAS 08 Jul 2023 0742 ------- ------- ------- ------- -- CLIFTON Rome 07/08 Released w/o Limitations [facility] Med [facility]) [facility] Outpatient Encounter [id number] 5 04/04 [facility] Outpatient Encounter [id number] 04/08 [facility] Outpatient Encounter [id number] AMANDA HUGHES 05/08 [facility] PH1 ASSMT&MGMT NQHP 11-20 [id number] Diagnos is: ICD-10- CM 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, 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 BIANKA Peter 05/08 [facility] OFFICE O/P EST HI 40 MIN [id number] Diagnos is: ICD-10- CM G43.119 Migrain e with aura, intract able, without status migrain osus NIKOSANTHONYA MMAD T 05/13 [facility] Outpatient Encounter [id number] NIKOSANTHONYA MMAD T 05/14 [facility] Outpatient Encounter [id number] GHISLAINE STROUD 05/14 [facility] Outpatient Encounter [id number] CECILY KNOTT MMAD T 05/15 [facility] Outpatient Encounter [id number] JERRELL ESPINAL L 05/23 [facility] SYNCH AUDIO-ONLY EST MOD 30 [id number] Diagnos is: ICD-10- CM G43.109 Migrain e with aura, not intract able, w/o status migrain osus NIKOS,MOHA MMAD T 05/24 [facility] OFF/OP EST MAY X REQ PHY/QHP [id number] Diagnos is: ICD-10- CM 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 Procedure Procedure Type Code Date Perfomer Comments Sourc e NJX DX/THER AGT PVRT FACET JT LMBR/SAC 3+ LEVEL NJX DX/THER AGT PVRT FACET JT LMBR/SAC 3+ LEVEL 63812 1019C-[place] Destruction by neurolytic agent, paravertebral facet joint nerve(s), with imaging guidance (fluoroscopy or CT); lumbar or sacral, single facet joint Destruction by neurolytic agent, paravertebral facet joint nerve(s), with imaging guidance (fluoroscopy or CT); lumbar or sacral, single facet joint 61339 1019C-[place] NJX DX/THER AGT PVRT FACET JT LMBR/SAC 2ND LEVEL NJX DX/THER AGT PVRT FACET JT LMBR/SAC 2ND LEVEL 22311 1019C-[place] Injection, anesthetic agent and/or steroid, transforaminal epidural; lumbar or sacral, single level Injection, anesthetic agent and/or steroid, transforaminal epidural; lumbar or sacral, single level 73930 1019C-[place] NJX DX/THER AGT PVRT FACET JT LMBR/SAC 1 LEVEL NJX DX/THER AGT PVRT FACET JT LMBR/SAC 1 LEVEL 80641 1019[facility]-[place] INFLUENZA VIRUS VACCINE, QUADRIVALENT (IIV4), SPLIT VIRUS, PRESERVATIVE FREE, 0.5 ML DOSAGE, FOR INTRAMUSCULAR USE 2016 DoD IMMUNIZATION ADMINISTRATION (INCLUDES PERCUTANEOUS, INTRADERMAL, SUBCUTANEOUS, OR INTRAMUSCULAR INJECTIONS); 1 VACCINE (SINGLE OR COMBINATION VACCINE/TOXOID) 2016 [facility] PURE TONE AUDIOMETRY (THRESHOLD), AUTOMATED; AIR ONLY 2016 DoD FITTING OF SPECTACLES, EXCEPT FOR APHAKIA; MONOFOCAL 2016 DoD PRESCRIPTION OF OPTICAL AND PHYSICAL CHARACTERISTICS OF AND FITTING OF CONTACT LENS, WITH MEDICAL SUPERVISION OF ADAPTATION; CORNEAL LENS, BOTH EYES, EXCEPT FOR APHAKIA 2020 [facility] DETERMINATION OF REFRACTIVE STATE 2020 [facility] INFLUENZA VIRUS VACCINE, QUADRIVALENT (IIV4), SPLIT VIRUS, PRESERVATIVE FREE, 0.5 ML DOSAGE, FOR INTRAMUSCULAR USE 2020 [facility] VIS FUNCT SCREEN,AUTOMAT/SEMI -AUTOMAT BILAT QUANT DETERM VISUAL ACUITY,OCULAR ALIGN,COLOR VISION,PSEUDOISOCHR OMAT PLATES,& FIELD VIS (MAY INC ALL/SOME SCRN DETERM FOR CONTRAST SENSITIV,VIS UND GLARE) 2020 [facility] VIS FUNCT SCREEN,AUTOMAT/SEMI -AUTOMAT BILAT QUANT DETERM VISUAL ACUITY,OCULAR ALIGN,COLOR VISION,PSEUDOISOCHR OMAT PLATES,& FIELD VIS (MAY INC ALL/SOME SCRN DETERM FOR CONTRAST SENSITIV,VIS UND GLARE) 2020 [facility] EDUCATION &TRAINING, PATIENT SELF-MGT QUALIFIED, NONPHYSICIAN HEALTH PEDIATRIC GENETICIST USING STANDARDIZED CURRICULUM, FITW-SI-NSFO W THE PATIENT (COULD INCL CAREGIVER/FAMILY) EA 30 MIN; 5-8 PATIENTS 2019 [facility] INJECTION, KETOROLAC TROMETHAMINE, PER 15 MG 2019 [facility] THERAPEUTIC PROCEDURE, 1 OR MORE AREAS, EACH 15 MINUTES; THERAPEUTIC EXERCISES TO DEVELOP STRENGTH AND ENDURANCE, RANGE OF MOTION AND FLEXIBILITY 2019 [facility] PHYSICAL OR MANIPULATIVE THERAPY PERFORMED FOR MAINTENANCE RATHER THAN TEMPLE 2019 [facility] PHYSICAL OR MANIPULATIVE THERAPY PERFORMED FOR MAINTENANCE RATHER THAN TEMPLE 2019 [facility] PHYSICAL OR MANIPULATIVE THERAPY PERFORMED FOR MAINTENANCE RATHER THAN TEMPLE 2019 [facility] PHYSICAL OR MANIPULATIVE THERAPY PERFORMED FOR MAINTENANCE RATHER THAN TEMPLE 2019 [facility] PHYSICAL OR MANIPULATIVE THERAPY PERFORMED FOR MAINTENANCE RATHER THAN TEMPLE 2019 [facility] THERAPEUTIC PROCEDURE, 1 OR MORE AREAS, EACH 15 MINUTES; THERAPEUTIC EXERCISES TO DEVELOP STRENGTH AND ENDURANCE, RANGE OF MOTION AND FLEXIBILITY 2019 [facility] ADMINISTRATION OF PATIENT-FOCUSED HEALTH RISK ASSESSMENT INSTRUMENT (EG, HEALTH HAZARD APPRAISAL) WITH SCORING AND DOCUMENTATION, PER STANDARDIZED INSTRUMENT 2019 [facility] OPHTHALMOLOGICAL SERVICES: MEDICAL EXAMINATION AND EVALUATION, WITH INITIATION OR CONTINUATION OF DIAGNOSTIC AND TREATMENT PROGRAM; INTERMEDIATE, ESTABLISHED PATIENT 2018 [facility] PRESCRIPTION OF OPTICAL AND PHYSICAL CHARACTERISTICS OF AND FITTING OF CONTACT LENS, WITH MEDICAL SUPERVISION OF ADAPTATION; CORNEAL LENS, BOTH EYES, EXCEPT FOR APHAKIA 2018 [facility] SCREENING TEST OF VISUAL ACUITY, QUANTITATIVE, BILATERAL 2018 [facility] SUPP &MATERIAL (EXCEPT SPECTACLE),PROVID,T HE PHYS/OTH QUALIFIED HEALTH PEDIATRIC GENETICIST OVER &ABOVE THOSE USUALLY INCLD W THE OFFICE VISIT/OTH SER RENDERED (LIST DRUG,TRAYS,SUPP,OR MATERIAL PROVID) 2018 [facility] COLLECTION OF VENOUS BLOOD BY VENIPUNCTURE 2017 [facility] SCREENING TEST OF VISUAL ACUITY, QUANTITATIVE, BILATERAL 2017 [facility] PRESCRIPTION OF OPTICAL AND PHYSICAL CHARACTERISTICS OF AND FITTING OF CONTACT LENS, WITH MEDICAL SUPERVISION OF ADAPTATION; CORNEAL LENS, BOTH EYES, EXCEPT FOR APHAKIA 2017 [facility] HEPATITIS A AND HEPATITIS B VACCINE (HEPA-HEPB), ADULT DOSAGE, FOR INTRAMUSCULAR USE 2017 [facility] ADMINISTRATION OF PATIENT-FOCUSED HEALTH RISK ASSESSMENT INSTRUMENT (EG, HEALTH HAZARD APPRAISAL) WITH SCORING AND DOCUMENTATION, PER STANDARDIZED INSTRUMENT 2022 [facility] PATIENT EDUCATION, NOT OTHERWISE CLASSIFIED, NON-PHYSICIAN PROVIDER, INDIVIDUAL, PER SESSION 2022 [facility] EAR MOLD/INSERT, NOT DISPOSABLE, ANY TYPE 2022 DoD INJECTION(S),DIAG/T HER SUBSTANCE(S) (EG,ANES,ANTISPASMO D,OPIOID,STEROID,OT H ALLY),NOT INCL NEUROLYTIC SUBS,INCL NEEDLE/CATH PLACEMENT,INTERLAMI [place] EPIDURAL/SUBARACH,L UMBAR/SACRAL (CAUDAL);W IMAG GUID 2022 DoD INJECTION(S), ANESTHETIC AGENT(S) AND/OR STEROID; TRANSFORAMINAL EPIDURAL, WITH IMAGING GUIDANCE (FLUOROSCOPY OR CT), LUMBAR OR SACRAL, SINGLE LEVEL 2022 DoD PRESCRIPTION OF OPTICAL AND PHYSICAL CHARACTERISTICS OF AND FITTING OF CONTACT LENS, WITH MEDICAL SUPERVISION OF ADAPTATION; CORNEAL LENS, BOTH EYES, EXCEPT FOR APHAKIA 2022 DoD DESTRUCTION,NEUROLY TIC AGENT,PARAVERTEBRAL FACET JOINT NERVE(S),W IMAGING GUIDANCE (FLUOROSCOPY/CT);EFRAÍN MBAR/SACRAL,EA ADDITIONAL FACET JOINT (LIST SEPARATELY IN ADDITION TO CODE FOR PRIMARY PROCEDURE) 2022 DoD DESTRUCTION,NEUROLY TIC AGENT,PARAVERTEBRAL FACET JOINT NERVE(S),W IMAGING GUIDANCE (FLUOROSCOPY/CT);EFRAÍN MBAR/SACRAL,EA ADDITIONAL FACET JOINT (LIST SEPARATELY IN ADDITION TO CODE FOR PRIMARY PROCEDURE) 2022 DoD IMMUNIZATION ADMINISTRATION (INCLUDES PERCUTANEOUS, INTRADERMAL, SUBCUTANEOUS, OR INTRAMUSCULAR INJECTIONS); 1 VACCINE (SINGLE OR COMBINATION VACCINE/TOXOID) 2022 [facility] INJECT(S),DIAG/THER AGNT,PARAVERTEB FAC (ZYGAPOPHYS) JT (OR NERV INNERVATING THAT JT) W IMAG GUIDANCE (FLUORO/CT),LUMB/SA C;3RD & ANY ADDITION LEVL (LIST SEPARATELY IN ADDITION TO CODE FOR PRIM PROC) 2022 DoD IMMUNIZATION ADMINISTRATION (INCLUDES PERCUTANEOUS, INTRADERMAL, SUBCUTANEOUS, OR INTRAMUSCULAR INJECTIONS); 1 VACCINE (SINGLE OR COMBINATION VACCINE/TOXOID) 2022 [facility] TELEHEALTH ORIGINATING SITE FACILITY FEE 2022 DoD IMMUNIZATION ADMINISTRATION (INCLUDES PERCUTANEOUS, INTRADERMAL, SUBCUTANEOUS, OR INTRAMUSCULAR INJECTIONS); 1 VACCINE (SINGLE OR COMBINATION VACCINE/TOXOID) 2021 [facility] PATIENT EDUCATION, NOT OTHERWISE CLASSIFIED, NON-PHYSICIAN PROVIDER, INDIVIDUAL, PER SESSION 2021 [facility] DETERMINATION OF REFRACTIVE STATE 2021 DoD IMMUNIZATION ADM,INTRAMUSCULAR INJECTION OF SEVERE AC RESPIRATORY SYNDROME CORONAVIR 2 (SARSCOV-2) (CORONAVIR DIS [COVID-19]) VACCINE,MRNALNP,SPI KE PROT,PRESERVATIVE FREE,100 MCG/0.5ML DOSAG;1ST DOSE 2021 [facility] OPHTHALMOLOGICAL SERVICES: MEDICAL EXAMINATION AND EVALUATION WITH INITIATION OF DIAGNOSTIC AND TREATMENT PROGRAM; INTERMEDIATE, NEW PATIENT 2021 DoD IMMUNIZATION ADMINISTRATION (INCLUDES PERCUTANEOUS, INTRADERMAL, SUBCUTANEOUS, OR INTRAMUSCULAR INJECTIONS); 1 VACCINE (SINGLE OR COMBINATION VACCINE/TOXOID) 2020 [facility] EAR MOLD/INSERT, NOT DISPOSABLE, ANY TYPE 2020 [facility] OPHTHALMOLOGICAL SERVICES: MEDICAL EXAMINATION AND EVALUATION, WITH INITIATION OR CONTINUATION OF DIAGNOSTIC AND TREATMENT PROGRAM; INTERMEDIATE, ESTABLISHED PATIENT 2020 [facility] FITTING OF SPECTACLES, EXCEPT FOR APHAKIA; MONOFOCAL 2020 [facility] Screening Test Of Visual Acuity, Quantitative, Bilateral Screening Test Of Visual Acuity, Quantitative, Bilateral 62740 2017 IRIS WALKER [facility] Immunization Administration One Vaccine Immunization Administration One Vaccine 00871 2017 IRIS WALKER [facility] Venipuncture Venipuncture 08039 2017 IRIS WALKER [facility] Prescription & Fitting Bilateral Corneal Lenses (Not Aphakia Prescription & Fitting Bilateral Corneal Lenses (Not Aphakia 88873 2017 MAYRA ROSSI Ophthalmological New Patient Start Comprehensive Care Ophthalmological New Patient Start Comprehensive Care [id number] 2017 MAYRA ROSSI [facility] Fitting Monofocals (Not For Aphakia) [facility] Fitting Monofocals (Not For Aphakia) 15645 2017 MAYRA ROSSI Determination Of Refractive State Determination Of Refractive State 96220 2017 MAYRA ROSSI Hepatitis A And Hepatitis B (Intramuscular Use) Adult Dosage Hepatitis A And Hepatitis B (Intramuscular Use) Adult Dosage 31506 2017 YASMINE ROCHA Immunization Administration One Vaccine Immunization Administration One Vaccine 97310 2017 YASMINE ROCHA Immunization Administration One Vaccine Immunization Administration One Vaccine 31964 2016 DONG LADD Vaccines Viral Varicella (Active) Vaccines Viral Varicella (Active) 31635 2016 JEREMY TATE Varicella vaccine 0.5mL administered subcutaneous in left triceps, patient observed x 15 minutes post injection with no side effects and or adverse reactions noted.^ DoD Immunization Administration Each Additional Vaccine Immunization Administration Each Additional Vaccine 55939 2016 JEREMY TATE Hepatitis A And Hepatitis B (Intramuscular Use) Adult Dosage Hepatitis A And Hepatitis B (Intramuscular Use) Adult Dosage 51317 2016 JEREMY TATE Hepatitis A and Hepatitis B vaccine Adult (TWINRIX) 1mL administered IM in left deltoid, patient observed x 15 minutes post injection with no side effects and or adverse reactions noted.^ DoD Immunization Administration One Vaccine Immunization Administration One Vaccine 05634 2016 JEREMY TATE Threshold Audiogram (Pure Tone) Automated Threshold Audiogram (Pure Tone) Automated [id number] 2016 PAMELA BAPTISTE [employer] [facility] Fitting Monofocals (Not For Aphakia) [employer] [facility] Fitting Monofocals (Not For Aphakia) 16406 2016 AMOR IBANEZ 5A 50/20 UPLC 42/24 M50 54/22 Gerry Venipuncture Venipuncture 43486 2017 CAR GOMEZ Vaccines Viral Polio, Inactivated (Salk) Vaccines Viral Polio, Inactivated (Salk) 46246 2017 CAR GOMEZ Immunization Administration Each Additional Vaccine Immunization Administration Each Additional Vaccine 67165 2017 JEREMIAS GOMEZAH Jessica Garrett Immunization Administration One Vaccine Immunization Administration One Vaccine 19720 2017 CAR GOMEZ Screening Test Of Visual Acuity, Quantitative, Bilateral Screening Test Of Visual Acuity, Quantitative, Bilateral 67635 2017 CAR GOMEZ Typhoid Vaccine Vi Capsular Polysaccharide, For Intramus Use Typhoid Vaccine Vi Capsular Polysaccharide, For Intramus Use 61462 2017 IRIS WALKER Immunization Administration Each Additional Vaccine Immunization Administration Each Additional Vaccine 24996 2017 IRIS WALKER Audiogram (Screening) Audiogram (Screening) 24523 RADHA DOHERTY Threshold Audiogram (Pure Tone) Automated Threshold Audiogram (Pure Tone) Automated 0208T RADHA DOHERTY Ear mold/insert, not disposable, any type RADHA DOHERTY Ear Protector Attenuation Measurements Ear Protector Attenuation Measurements 47664 RADHA DOHERTY [facility] Testing [facility]ometry [facility] Testing [address]Supervised Services Provision Of Special Supplies -Supervised Services Provision Of Special Supplies 18376 RADHA DOHERTY Screening Test Of Visual Acuity, Quantitative, Bilateral Screening Test Of Visual Acuity, Quantitative, Bilateral 96380 ROCK PEREZ Determination Of Refractive State Determination Of Refractive State 24992 ROCK PEREZ Ophthalmological New Patient Start Comprehensive Care Ophthalmological New Patient Start Comprehensive Care 16540 ROCK PEREZ [facility] [facility] Fitting Monofocals (Not For Aphakia) [facility] Fitting Monofocals (Not For Aphakia) 77684 ROCK PEREZ Prescription & Fitting Bilateral Corneal Lenses (Not Aphakia Prescription & Fitting Bilateral Corneal Lenses (Not Aphakia 17229 ROCK PEREZ Ophthalmological Prior Patient Start Intermediate Level Care Ophthalmological Prior Patient Start Intermediate Level Care 63116 ROCK PEREZ Physical Therapy: ___ Se ion Segments, 15 Minutes Each Physical Therapy: ___ Session Segments, 15 Minutes Each 11236 EMMA JIMENEZ [facility] Physical Medicine Physical Therapy Re-Evaluation Physical Medicine Physical Therapy Re-Evaluation 64127 EMMA JIMENEZ [facility] Physical or manipulative therapy performed for maintenance rather than yazidi EMMA JIMENEZ [facility] Modalities Electrical Stimulation Attended Each 15 Minutes Modalities Electrical Stimulation Attended Each 15 Minutes 25700 EMMA JIMENEZ [facility] Patient Counseling Medical Management Five To Eight Patients Patient Counseling Medical Management Five To Eight Patients 79356 RUPAL JACOB [facility] Visual Function Screening Visual Function Screening 79292 DEMARCUS PEARCE [facility] Immunization Administration One Vaccine Immunization Administration One Vaccine 75974 WILBERT MAJANO [facility] Ophthalmological Prior Patient Start Comprehensive Care Ophthalmological Prior Patient Start Comprehensive Care 63748 YANN AWAN [facility] Patient education, not otherwise cla ified, non-physician provider, individual, per se CHAGO Guerrero [facility] Telehealth originating site facility fee DELMAR GARCIA [facility] Fluorosc Guid For Inj Of Paravertebral Facet Joint Lumbar Single Level Fluorosc Guid For Inj Of Paravertebral Facet Joint Lumbar Single Level 12239 JABIER ALEXANDRE [facility] Fluorosc Guid For Inj Of Paravertebral Facet Joint Lumbar Second Level Fluorosc Guid For Inj Of Paravertebral Facet Joint Lumbar Second Level 48182 JABIER ALEXANDRE [facility] Fluorosc Guid For Inj Of Paravertebral Facet Joint Lumbar Third Level Fluorosc Guid For Inj Of Paravertebral Facet Joint Lumbar Third Level 84866 JABIER ALEXANDRE [facility] Corticosteroid Inj Transforaminal Approach Lumbar w/ Fluoroscopic Guidance Corticosteroid Inj Transforaminal Approach Lumbar w/ Fluoroscopic Guidance 67875 JABIER ALEXANDRE [facility] Social History Combined list of available smoking, tobacco, and other social history from Department of Defense and Veterans Affairs facilities. Social History Type Response Date Comment [facility] e Tobacco smoking status NHIS VA-TOBACCO NEVER USED CIGARETTES 05/08/2025 [facility] History of tobacco use VA-TOBACCO NEVER USED OTHER TYPE 05/08/2025 [facility] Sex Representation Male (finding) 03/10/2023 Un known Organization Tobacco Never-cigarette user Cigarette use:. Never-other tobacco user (not cigarettes) Other Tobacco use:. [facility] Sexual Orientation Ambula tory Pharmacy Gender identity Ambulator y Pharmacy This section is an empty social history section. DoD Assessment and Plan Combined list of future care activities from Department of Defense and Veterans Affairs facilities (e.g., assessment and plan notes, appointments, orders, and referrals). Additional future care activities may be listed in the Plan of Care section. Result Assessment and Plan Date Source Assessment and Plan Extracted from:Title : Office Clinic Note - Separation Physical Author: JENNIFER MUNIZ MD Date: 04/30/24 1. A dministrative reason for encounter SGT F ord i s a 1 5 Years-old M bess s een for Medical Separation Physical. MEB completed for chronic low back pain with disc bulge and left-sided radiculopathy with paresthesias - unresolved after multiple ablations/injections with Pain Management and pharmacotherapy trials.?No acute concerns/complaints addressed today. Clinical exam had no abnormalities, hospitality services manager had no specific concerns today. - 2807 reviewed; signed - 2808 reviewed; completed; signed - Documents scanned into [employer] [facility] -- Profile: L3 -- Vision: UTD -- Hearing: UTD -- Dental: UTD -- Immunization: UTD -- Labs: UTD -- BH: No concerns. -- Medical: No referrals indicated at this time. MRC3 - Not medically ready; non-deployable Total time spent caring for this E stablished patient today was 3 0-39 m inutes; including chart review, interview, examination, order placement, and visit documentation. Jennifer Muniz MD [facility], [facility] Family Medicine Physician, Flight Surgeon [facility] Extracted from:Title: Eye Care Office Visit Note Author: CARLENE QUEEN, OD Date: 04/25/24 1. E ncounter for screening for eye and ear disorders Patient educated that this is not an eye exam, only a visual screening. A dvised to RTC within the next 12 months for full comprehensive eye exam or sooner if any sudden changes in vision. CPT Carlene Queen OD Chief Crystal Lapper, Ancillary [facility] Extracted from:Title: Audiology Clinic Note Author: VAUGHN VALENTE Date: 04/24/24 1. 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 Patient was educated IAW Celestine 6055.12 on the following topics: 1. Effects of noise on hearing 2. Purpose of hearing protectors, instructions on selection, fit, use and care 3. Mandatory requirement of assigned protective equipment, and administrative actions that may follow for failure to wear 4. Purpose and procedures of audiometric testing 5. The fact that hearing loss may lead to disqualification from current duties . Patient reports tinnitus: Y es - It is slightly bothersome Results IAW DA-HAYDE 40-502, p atient i s a: H -1 Significant Threshold Shift (STS): N o - Patient to return for annual testing in 12 months ? Referral indicated at this time?: N o Results loaded into medical record. Extracted from:Title: Eye Care Office Visit Note Author: CARLENE QUEEN W, OD Date: 04/18/24 1. H yperopia CL RX trialed. Patient instructed on a monthly modality, DW only and to use a branded MPS. See below for CL RX trialed. [employer] Toric/ 8.7/ 14.5 OD: +[id number] OS: +6.00-0.12l684 Pt educated no sleeping, swimming or showering with CLs in. I f any sudden redness or pain to RTC immediately. R TC in 1 week for CLRx finalization 2. A stigmatism see #1 D iagnosis: 1 . H yperopia Comment: Ordered: Ophthalmological [place] Xm&[place] [address]; 04/17/2024 14:17:00 BONILLA D iagnosis: 2 . A stigmatism Comment: End of Orders Extracted from:Title: BEH Therapist OP Follow Up Note Author: ABISAI ALVARADO Date: 04/17/24 23 y.o. 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 Two MedBoard attempts turned back. 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 Current diagnosis of Adjustment Disorder R/O PTSD. No current medication, denies alcohol abuse, endorses poor sleep patterns. 1. P ost-traumatic stress disorder, chronic Diagnostic Criteria Posttraumatic Stress Disorder Note: T he following criteria apply to adults, adolescents, and children older than 6 years. For children 6 years and younger, see corresponding criteria below. 1. E xposure to actual or threatened , serious injury, or sexual violence in one (or more) of the following ways: 1. D irectly experiencing the traumatic event(s). 2. W itnessing, in person, the event(s) as it occurred to others. 3. L earning that the traumatic event(s) occurred to a close family member or close friend. In cases of actual or threatened of a family member or friend, the event(s) must have been violent or accidental. 4. E xperiencing repeated or extreme exposure to aversive details of the traumatic event(s) (e.g., first responders collecting human remains; police officers repeatedly exposed to details of child abuse). Note: C riterion A4 does not apply to exposure through electronic media, television, movies, or pictures, unless this exposure is work related. 2. P resence of one (or more) of the following intrusion symptoms associated with the traumatic event(s), beginning after the traumatic event(s) occurred: 1. R ecurrent, involuntary, and intrusive distressing memories of the traumatic event(s). Note: I n children older than 6 years, repetitive play may occur in which themes or aspects of the traumatic event(s) are expressed. 2. R ecurrent distressing dreams in which the content and/or affect of the dream are related to the traumatic event(s). Note: I n children, there may be frightening dreams without recognizable content. 3. D issociative reactions (e.g., flashbacks) in which the individual feels or acts as if the traumatic event(s) were recurring. (Such reactions may occur on a continuum, with the most extreme expression being a complete loss of awareness of present surroundings.) Note: I n children, trauma-specific reenactment may occur in play. 4. I ntense or prolonged psychological distress at exposure to internal or external cues that symbolize or resemble an aspect of the traumatic event(s). 5. M arked physiological reactions to internal or external cues that symbolize or resemble an aspect of the traumatic event(s). 3. P ersistent avoidance of stimuli associated with the traumatic event(s), beginning after the traumatic event(s) occurred, as evidenced by one or both of the followin. A voidance of or efforts to avoid distressing memories, thoughts, or feelings about or closely associated with the traumatic event(s). 2. A voidance of or efforts to avoid external reminders (people, places, conversations, activities, objects, situations) that arouse distressing memories, thoughts, or feelings about or closely associated with the traumatic event(s). 4. N egative alterations in cognitions and mood associated with the traumatic event(s), beginning or worsening after the traumatic event(s) occurred, as evidenced by two (or more) of the followin. I nability to remember an important aspect of the traumatic event(s) (typically due to dissociative amnesia and not to other factors such as head injury, alcohol, or drugs). 2. P ersistent and exaggerated negative beliefs or expectations about oneself, others, or the world (e.g., I am bad, N o one can be trusted, ?The world is completely dangerous, M y whole nervous system is permanently ruined ) . 3. P ersistent, distorted cognitions about the cause or consequences of the traumatic event(s) that lead the individual to blame himself/herself or others. 4. P ersistent negative emotional state (e.g., fear, horror, anger, guilt, or shame). 5. M arkedly diminished interest or participation in significant activities. 6. F eelings of detachment or estrangement from others. 7. P ersistent inability to experience positive emotions (e.g., inability to experience happiness, satisfaction, or loving feelings). 5. M arked alterations in arousal and reactivity associated with the traumatic event(s), beginning or worsening after the traumatic event(s) occurred, as evidenced by two (or more) of the followin. I rritable behavior and angry outbursts (with little or no provocation) typically expressed as verbal or physical aggression toward people or objects. 2. R eckless or self-destructive behavior. 3. H ypervigilance. 4. E xaggerated startle response. 5. P roblems with concentration. 6. S leep disturbance (e.g., difficulty falling or staying asleep or restless sleep). 6. D uration of the disturbance (Criteria B, C, D, and E) is more than 1 month. 7. T he disturbance causes clinically significant distress or impairment in social, occupational, or other important areas of functioning. 8. T he disturbance is not attributable to the physiological effects of a substance (e.g., medication, alcohol) or another medical condition. Prognosis: Fair Benefits, Risks, Alternatives Discussed: Yes Benefits, Risks, SE Comments: Offered therapy to help support SM during MEB process and to help with distress about chronic pain and combat traumas. Treatment Plan: Continue current psychotherapy Number of Visits Expected: 4-8 Target Symptoms: Trauma Goals of Treatment: Decrease in target symptoms Evaluation Type: Time based Goals of Treatment #1: Decrease in target symptoms Treatment Planning Requirements: 3) Provider will leverage patient strengths and limit potential barriers to treatment Extracted from:Title: BEH Therapist OP Follow Up Note Author: ABISAI ALVARADO Date: 04/10/24 23 y.o. 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 Two MedBoard attempts turned back. 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 Current diagnosis of PTSD, Chronic . No current medication, denies alcohol abuse, endorses poor sleep patterns. Will separate from the [employer] May 16 due to medical conditions from deployment. 1. P ost-traumatic stress disorder, chronic Diagnostic Criteria Posttraumatic Stress Disorder Note: T he following criteria apply to adults, adolescents, and children older than 6 years. For children 6 years and younger, see corresponding criteria below. 1. E xposure to actual or threatened , serious injury, or sexual violence in one (or more) of the following ways: 1. D irectly experiencing the traumatic event(s). 2. W itnessing, in person, the event(s) as it occurred to others. 3. L earning that the traumatic event(s) occurred to a close family member or close friend. In cases of actual or threatened of a family member or friend, the event(s) must have been violent or accidental. 4. E xperiencing repeated or extreme exposure to aversive details of the traumatic event(s) (e.g., first responders collecting human remains; police officers repeatedly exposed to details of child abuse). Note: C riterion A4 does not apply to exposure through electronic media, television, movies, or pictures, unless this exposure is work related. 2. P resence of one (or more) of the following intrusion symptoms associated with the traumatic event(s), beginning after the traumatic event(s) occurred: 1. R ecurrent, involuntary, and intrusive distressing memories of the traumatic event(s). Note: I n children older than 6 years, repetitive play may occur in which themes or aspects of the traumatic event(s) are expressed. 2. R ecurrent distressing dreams in which the content and/or affect of the dream are related to the traumatic event(s). Note: I n children, there may be frightening dreams without recognizable content. 3. D issociative reactions (e.g., flashbacks) in which the individual feels or acts as if the traumatic event(s) were recurring. (Such reactions may occur on a continuum, with the most extreme expression being a complete loss of awareness of present surroundings.) Note: I n children, trauma-specific reenactment may occur in play. 4. I ntense or prolonged psychological distress at exposure to internal or external cues that symbolize or resemble an aspect of the traumatic event(s). 5. M arked physiological reactions to internal or external cues that symbolize or resemble an aspect of the traumatic event(s). 3. P ersistent avoidance of stimuli associated with the traumatic event(s), beginning after the traumatic event(s) occurred, as evidenced by one or both of the followin. A voidance of or efforts to avoid distressing memories, thoughts, or feelings about or closely associated with the traumatic event(s). 2. A voidance of or efforts to avoid external reminders (people, places, conversations, activities, objects, situations) that arouse distressing memories, thoughts, or feelings about or closely associated with the traumatic event(s). 4. N egative alterations in cognitions and mood associated with the traumatic event(s), beginning or worsening after the traumatic event(s) occurred, as evidenced by two (or more) of the followin. I nability to remember an important aspect of the traumatic event(s) (typically due to dissociative amnesia and not to other factors such as head injury, alcohol, or drugs). 2. P ersistent and exaggerated negative beliefs or expectations about oneself, others, or the world (e.g., I am bad, N o one can be trusted, ?The world is completely dangerous, M y whole nervous system is permanently ruined ) . 3. P ersistent, distorted cognitions about the cause or consequences of the traumatic event(s) that lead the individual to blame himself/herself or others. 4. P ersistent negative emotional state (e.g., fear, horror, anger, guilt, or shame). 5. M arkedly diminished interest or participation in significant activities. 6. F eelings of detachment or estrangement from others. 7. P ersistent inability to experience positive emotions (e.g., inability to experience happiness, satisfaction, or loving feelings). 5. M arked alterations in arousal and reactivity associated with the traumatic event(s), beginning or worsening after the traumatic event(s) occurred, as evidenced by two (or more) of the followin. I rritable behavior and angry outbursts (with little or no provocation) typically expressed as verbal or physical aggression toward people or objects. 2. R eckless or self-destructive behavior. 3. H ypervigilance. 4. E xaggerated startle response. 5. P roblems with concentration. 6. S leep disturbance (e.g., difficulty falling or staying asleep or restless sleep). 6. D uration of the disturbance (Criteria B, C, D, and E) is more than 1 month. 7. T he disturbance causes clinically significant distress or impairment in social, occupational, or other important areas of functioning. 8. T he disturbance is not attributable to the physiological effects of a substance (e.g., medication, alcohol) or another medical condition. Prognosis: Fair Benefits, Risks, Alternatives Discussed: Yes Benefits, Risks, SE Comments: Offered therapy to help support SM during MEB process and to help with distress about chronic pain and combat traumas. Treatment Plan: Continue current psychotherapy Number of Visits Expected: 4-8 Target Symptoms: Trauma Goals of Treatment: Decrease in target symptoms Evaluation Type: Time based Goals of Treatment #1: Decrease in target symptoms Treatment Planning Requirements: 3) Provider will leverage patient strengths and limit potential barriers to treatment Extracted from:Title: BEH Therapist OP Follow Up Note Author: RAYJULIOABISAI Date: 04/03/24 23 y.o. 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 Two MedBoard attempts turned back. 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 Current diagnosis of Adjustment Disorder R/O PTSD. No current medication, denies alcohol abuse, endorses poor sleep patterns. 1. A djustment disorder, unspecified 1. The development of emotional or behavioral symptoms in response to an identifiable stressor(s) occurring within 3 months of the onset of the stressor(s). 2. These symptoms or behaviors are clinically significant, as evidenced by one or both of the followin. Marked distress that is out of proportion to the severity or intensity of the stressor, taking into account the external context and the cultural factors that might influence symptom severity and presentation. 2. Significant impairment in social, occupational, or other important areas of functioning. 3. The stress-related disturbance does not meet the criteria for another mental disorder and is not merely an exacerbation of a preexisting mental disorder. 4. The symptoms do not represent normal bereavement. 5. Once the stressor or its consequences have terminated, the symptoms do not persist for more than an additional 6 months. T he stressor is ongoing, as her disposition in the [employer] remains uncertain along with disciplinary actions. 309.9 (F43.20) U nspecified: F or maladaptive reactions that are not classifiable as one of the specific subtypes of adjustment disorder. Persistent (chronic): I f the disturbance lasts for 6 months or longer. Prognosis: Fair Benefits, Risks, Alternatives Discussed: Yes Benefits, Risks, SE Comments: Offered therapy to help support SM during MEB process and to help with distress about chronic pain and combat traumas. Treatment Plan: Continue current psychotherapy Number of Visits Expected: 4-8 Target Symptoms: Trauma Goals of Treatment: Decrease in target symptoms Evaluation Type: Time based Goals of Treatment #1: Decrease in target symptoms Treatment Planning Requirements: 3) Provider will leverage patient strengths and limit potential barriers to treatment Extracted from:Title: Eye Care Office Visit Note Author: CARLENE QUEEN W, OD Date: 04/02/24 1. H yperopia of both eyes Pt educated on condition. N ew SRx=MRx issued today. C Ls ordered today. RTC in 2 weeks for CL exam or sooner if sudden changes in vision. 2. A stigmatism of both eyes see #1 D iagnosis: 1 . H yperopia of both eyes Comment: Ordered: Fitting Spectacles Xcpt Aphakia Monofocal [id number]; 04/02/2024 13:23:00 MESZ ? Determination Refractive State [id number]; 04/02/2024 13:23:00 MESZ ? Ophthalmological Medical Xm&Eval Comprhnsv Estab Pt 1/> [id number]; 04/02/2024 13:23:00 MESZ D iagnosis: 2 . A stigmatism of both eyes Comment: End of Orders Extracted from:Title: BEH Therapist OP Follow Up Note Author: ABISAI ALVARADO Date: 03/26/24 23 y.o. 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 Two MedBoard attempts turned back. 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 Current diagnosis of Adjustment Disorder R/O PTSD. No current medication, denies alcohol abuse, endorses poor sleep patterns. 1. A djustment disorder, unspecified Diagnostic Criteria 1. The development of emotional or behavioral symptoms in response to an identifiable stressor(s) occurring within 3 months of the onset of the stressor(s). 2. These symptoms or behaviors are clinically significant, as evidenced by one or both of the followin. Marked distress that is out of proportion to the severity or intensity of the stressor, taking into account the external context and the cultural factors that might influence symptom severity and presentation. 2. Significant impairment in social, occupational, or other important areas of functioning. 3. The stress-related disturbance does not meet the criteria for another mental disorder and is not merely an exacerbation of a preexisting mental disorder. 4. The symptoms do not represent normal bereavement. 5. Once the stressor or its consequences have terminated, the symptoms do not persist for more than an additional 6 months. T he stressor is ongoing, as her disposition in the [employer] remains uncertain along with disciplinary actions. 309.9 (F43.20) U nspecified: F or maladaptive reactions that are not classifiable as one of the specific subtypes of adjustment disorder. Persistent (chronic): I f the disturbance lasts for 6 months or longer. Prognosis: Fair Benefits, Risks, Alternatives Discussed: Yes Benefits, Risks, SE Comments: Offered therapy to help support SM during MEB process and to help with distress about chronic pain and combat traumas. Treatment Plan: Continue current psychotherapy Number of Visits Expected: 4-8 Target Symptoms: Trauma Goals of Treatment: Decrease in target symptoms Evaluation Type: Time based Goals of Treatment #1: Decrease in target symptoms Treatment Planning Requirements: 3) Provider will leverage patient strengths and limit potential barriers to treatment Treatment Planning Requirements: 3) Provider will leverage patient strengths and limit potential barriers to treatment Extracted from:Title: Telehealth Asynch Note - Radiculopathy Author: JENNIFER MUNIZ MD Date: 03/26/24 1. L umbar disc prolapse with radiculopathy 2. 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 Report currently awaiting translation, unable to discuss results today. Will follow up with patient once translated report received. All questions were answered. P atient m ay follow-up as needed. Jennifer Muniz MD [facility], [facility] Family Medicine Physician, Flight Surgeon [facility] Extracted from:Title: BEH Therapist OP Follow Up Note Author: ABISAI ALVARADO Date: 02/06/24 23 y.o. 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 Two MedBoard attempts turned back. 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 Current diagnosis of Adjustment Disorder R/O PTSD. No current medication, denies alcohol abuse, endorses poor sleep patterns. 1. A djustment disorder, unspecified S M referred to for ongoing treatment of BH symptoms related to deployment. Has attempted previously with ++++ D iagnosis 1 . A djustment disorder, unspecified Diagnostic Criteria 1. The development of emotional or behavioral symptoms in response to an identifiable stressor(s) occurring within 3 months of the onset of the stressor(s). 2. These symptoms or behaviors are clinically significant, as evidenced by one or both of the followin. Marked distress that is out of proportion to the severity or intensity of the stressor, taking into account the external context and the cultural factors that might influence symptom severity and presentation. 2. Significant impairment in social, occupational, or other important areas of functioning. 3. The stress-related disturbance does not meet the criteria for another mental disorder and is not merely an exacerbation of a preexisting mental disorder. 4. The symptoms do not represent normal bereavement. 5. Once the stressor or its consequences have terminated, the symptoms do not persist for more than an additional 6 months. T he stressor is ongoing, as her disposition in the [employer] remains uncertain along with disciplinary actions. 309.9 (F43.20) U nspecified: F or maladaptive reactions that are not classifiable as one of the specific subtypes of adjustment disorder. Specify i f: Acute: I f the disturbance lasts less than 6 months. Prognosis: Fair Benefits, Risks, Alternatives Discussed: Yes Benefits, Risks, SE Comments: Offered therapy to help support SM during MEB process and to help with distress about chronic pain and combat traumas. Treatment Plan: Continue current psychotherapy Number of Visits Expected: 4-8 Target Symptoms: Trauma Goals of Treatment: Decrease in target symptoms Evaluation Type: Time based Goals of Treatment #1: Decrease in target symptoms Treatment Planning Requirements: 3) Provider will leverage patient strengths and limit potential barriers to treatment Extracted from:Title: BEH Therapist OP Initial Visit Note Author: ABISAI ALVARADO Date: 01/31/24 SM referred to for ongoing treatment of BH symptoms related to deployment. Has attempted previously with ++++ 1. A djustment disorder, unspecified Diagnostic Criteria 1. The development of emotional or behavioral symptoms in response to an identifiable stressor(s) occurring within 3 months of the onset of the stressor(s). 2. These symptoms or behaviors are clinically significant, as evidenced by one or both of the followin. Marked distress that is out of proportion to the severity or intensity of the stressor, taking into account the external context and the cultural factors that might influence symptom severity and presentation. 2. Significant impairment in social, occupational, or other important areas of functioning. 3. The stress-related disturbance does not meet the criteria for another mental disorder and is not merely an exacerbation of a preexisting mental disorder. 4. The symptoms do not represent normal bereavement. 5. Once the stressor or its consequences have terminated, the symptoms do not persist for more than an additional 6 months. T he stressor is ongoing, as her disposition in the [employer] remains uncertain along with disciplinary actions. 309.9 (F43.20) U nspecified: F or maladaptive reactions that are not classifiable as one of the specific subtypes of adjustment disorder. Specify i f: Acute: I f the disturbance lasts less than 6 months. Prognosis: Fair Benefits, Risks, Alternatives Discussed: Yes Benefits, Risks, SE Comments: Offered therapy to help support SM during MEB process and to help with distress about chronic pain and combat traumas. Treatment Plan: Continue current psychotherapy Number of Visits Expected: 4-8 Target Symptoms: Trauma Goals of Treatment: Decrease in target symptoms Evaluation Type: Time based Goals of Treatment #1: Decrease in target symptoms Treatment Planning Requirements: 3) Provider will leverage patient strengths and limit potential barriers to treatment Extracted from:Title: Office Clinic Note - Paresthesias Author: JENNIFER MUNIZ MD Date: 12/01/23 1. 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 Patient has known degenerative lumbar disease with disc prolapse, undergoing MEB at this time. This decrease in sensation may be secondary to lumbar disease, however has not had formal evaluation of the paresthesias, which which are subjectively worsening. - Referred to neurology for nerve conduction study - Continue conservative management of known lumbar disease including physical therapy, heat, stretching, massage, anti-inflammatories as needed Ordered: Referral Request 2.0 2. T ension headache Also discussed recurrent headaches, occurring at the end of each day and associated with upper neck/muscle tension. Description fits tension headaches, no migrainous symptoms described by patient. Recommended conservative treatment with acetaminophen/ibuprofen as needed and heat/stretching/massage of neck for avoidance. Jennifer Muniz MD [facility], [facility] Family Medicine Physician, Flight Surgeon [facility] Extracted from:Title: BEH Therapist OP Initial Visit Note Author: ZAY STOCKTON, PhD Date: 11/29/23 [employer] self-referred to and described having some distress about combat traumas he experienced during deployment in [id number]. He explained to provider that overall he has been coping with symptoms adequately, but wants to ensure a line of communication with services now and when he transitions to [place] care. He would likely benefit from a few sessions of supportive therapy and/or psychoeducation about common reactions to trauma, chronic pain, and adjustment back to civilian life. 1. A djustment disorder, unspecified Return to clinic if SM would like to engage in any services. D iagnosis: 1 . A djustment disorder, unspecified Comment: Ordered: Emot/Behavl Assess w/Score and Doc; per tool [id number]; 11/29/2023 13:00:00 MEZ, 4 ? Psychiatric Diagnostic Evaluation [id number]; 11/29/2023 13:00:00 MEZ Prognosis: Fair Benefits, Risks, Alternatives Discussed: Yes Benefits, Risks, SE Comments: Offered therapy to help support SM during MEB process and to help with distress about chronic pain and combat traumas. Extracted from:Title: Telehealth Asynch Note - MEB Resubmission Author: JENNIFER MUNIZ MD Date: 11/01/23 1. 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 MEB declined due to leave, disrupting ability to attend b riefs and exams. No changes in clinical status, however patient was evaluated by physical therapy and told that they do not believe there is additional treatment to help his symptoms, but will work on mitigating baseline pain level. Patient remains at [facility] and appropriate for medical evaluation board. P3 profile resubmitted today. - Please see [id number] and [id number] notes for detailed history and treatment course 2. L umbar disc prolapse with radiculopathy Jennifer Muniz MD [facility], , [facility] Family Medicine Physician, Flight Surgeon [facility] Extracted from:Title: Office Clinic Note - Back/Hip Pain Author: JENNIFER MUNIZ MD Date: 09/30/23 1. L ow back pain Ordered: celecoxib(CeleBREX 200 mg oral capsule), 1 cap(s), Oral, Daily, # 45 cap(s), 1 total refill(s), Maintenance, 1 cap(s) Oral Daily, Pharmacy: [facility] [Federal Rx: #45 last filled 09/30/23] 2. 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 Patient has had extensive outpatient treatment course, previously unclear, however clarified via record review and extensive interview (see max results section). At this time patient denies significant relief from physical therapy, anti-inflammatories, muscle relaxants, nerve pain agents, activity modification, and multiple pain management treatments including lidocaine injections, nerve ablation, and epidural steroid injection. 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 With clearer picture of patient's clinical course over the past 5 years, would recommend assessment for medical evaluation via MEB process. P2 profile converted to P3 today. Ordered: Referral Request 2.0 Referral Request 2.0 3. P ain of left hip joint Acute left anterior hip pain, Without trauma or identifiable source. Range of motion somewhat limited by back pain, however overall has intact hip range of motion with negative Brody/Fadir and no impingement. Suspect inflammatory cause given tenderness over greater trochanteric bursa and anterior labral region. We will trial oral anti-inflammatory and physical therapy. Ordered: celecoxib(CeleBREX 200 mg oral capsule), 1 cap(s), Oral, Daily, # 45 cap(s), 1 total refill(s), Maintenance, 1 cap(s) Oral Daily, Pharmacy: [facility] [Federal Rx: #45 last filled 09/30/23] Referral Request 2.0 4. T horacic back pain Acute, mild/moderate thoracic back pain, most consistent with cervical rotation and/or muscle tension. Appears unrelated and unconnected to chronic lumbar pain. Recommended conservative treatment with oral anti-inflammatory, also feel trial of chiropractics would be reasonable. Referral placed today. Ordered: Referral Request 2.0 Jennifer Muniz MD [facility], , [facility] Family Medicine Physician, Flight Surgeon [facility] Extracted from:Title: Office Clinic Note Author: JENNIFER MUNIZ MD Date: 07/22/23 1. 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 [place] has had extensive conservative management, however has not been appropriately documented through the temporary or permanent profile system easily found within his medical charts. At this time recommended trial of one additional pharmacotherapy that he has not yet child (pregabalin) and P2 profile with ACFT and duty limitations. If no notable improvement after 3 month trial of pregabalin and PRT/ACFT limitations, despite gaps in profiled status, would recommend reconsideration for MEB given full history as detailed above. ACFT Modifications 2 mile run: NO Alternate Cardio (Swim/Row/Bike): B [place] SDC: N O BT: Y ES Plank: N O HRP: Y ES MDL: N O All questions were answered. Patient s tated understanding and agreement with current diagnosis and plan. Ordered: pregabalin(pregabalin 75 mg oral capsule), 1 cap(s), Oral, BID, Increase to 1 cap in AM and 2 caps in PM after 1 week; then 2 caps in AM and PM after 1 week (300mg daily), # 180 cap(s), 3 total refill(s), Maintenance, Up-titrating to total daily dose 300mg, 1 cap(s) Oral BID,Instr:Increase to 1 ca... 2. L ow back pain Ordered: Jennifer Muniz MD [facility], , [facility] Family Medicine Physician, [facility] 06/06/[address] [place] [address] Plan of Care List of future care activities from Department of [facility] Affairs facilities. Additional future care activities may be listed in the Assessment and Plan section. Date/Time Care Activity Care Activity Detail Facili ty 09/10/2025 AMBULATORY - MEDICINE AMBULATORY - MEDICI [facility] Functional Status Combined list of recent functional and cognitive assessments recorded at [facility] [place] Functional [place] Measurement (FIM) Scale: 1 = Total Assistance (Subject = 0% +), 2 = Maximal Assistance (Subject = 25% +), 3 = Moderate Assistance (Subject = 50% +), 4 = Minimal Assistance (Subject = 75% +), 5 = Supervision, 6 = Modified [place] (Device), 7 = Complete [place] (Timely, Safely). Assessment Date/Time Source Assessment Type Assessment Skill Assessment Score Assessment Details FUNCTIONAL 4Home Dietary Supplements Captured No
--- OUTSIDE RECORDS SUMMARY | 2025-06-06 09:02 | XMS_ITS | Encounter Summary ---
Author Name Department of Vetera Affairs (VA) Organization Department of Vetera [facility] ([place]) Address [address], [place] [address] Care Team Providers Care Improvement Coordinator Name Role Phone FELICE KNOTT Primary Care Provider Unavailabl e Selected Encounter This section includes the information on record at [place] for the Encounter. Date/Time Encounter Type Encounter Description Reason Provider Source May 13, 2025 01:30 PM OFFICE O/P EST HI 40 MIN PRIMARY CARE/MEDICINE ICD-10-CM G43.119 Migraine with aura, intractable, without status migrainosus FELICE KNOTT Encounter Template Text not used by VA Assessments - Encounter Diagnoses This section includes the primary and secondary diagnoses documented for the Encounter. Date/Time Primary/Secondary Diagnosis Diagnosis Name Provider Source May 14, 2025 12:47 AM PRIMARY Migraine with aura, intractable, without status migrainosus FELICE KNOTT [facility] May 14, 2025 12:47 AM SECONDARY Contact with and exposure to other hazardous substances FELICE KNOTT [facility] May 14, 2025 12:47 AM SECONDARY Gastro-esophageal reflux disease without esophagitis FELICE KNOTT [facility] May 14, 2025 12:47 AM SECONDARY Low back pain, unspecified FELICE KNOTT [facility] May 14, 2025 12:47 AM SECONDARY [facility] Plan of Treatment: Future Appointments (+ 6 months) and Future Tests (+/- 45 days) The Plan of Treatment section includes future care activities for the patient from [facility] This section includes future appointments and future orders which are active, pending or scheduled. Future Appointments This section includes appointments that were scheduled to occur 6 months from the date of the Encounter, up to a maximum of 20 appointments. The data comes from all [facility] facilities. Appointment Date/Time Appointment Type Appointme nt Facility Name May 24, 2025 10:00 AM AMBULATORY - MEDICINE [facility] Jun 05, 2025 08:30 AM AMBULATORY MEDICINE [facility] Sep 10, 2025 01:00 PM [facility] MEDICINE [facility] Lab Results: +/- 30 days of the encounter This section includes the Chemistry and Hematology Lab Results on record with [place] for the patient. Radiology Reports and Pathology Reports are provided separately, in subsequent sections. Lab Results This section contains the Chemistry/Hematology Results that were resulted 30 days before or 30 daysafter the date of the Encounter. Date/Time Source Result Type Result - Unit Interpretation Reference Range Specimen Type Comment May 14, 2025 08:39 AM [facility] LIPID PANEL (STL) PLASMA Specimen Type: PLASMA Comment: No hemolysis noted. Ordering Provider: FELICE KNOTT Report Released Date/Time: May 08, 2025 11:40 AM Reporting Lab: [facility] [address] [phone] Performing Lab: [facility] [address] [address] CHOLESTEROL 185 mg/dL 0-200 TRIGLYCERIDE 72 mg/dL 0-150 CALCULATED LDL 117 mg/dL HDL(New) 54 mg/dL >40 May 14, 2025 08:39 AM [facility] CBC BLOOD Specimen Type: BLOOD No comment entered. Ordering Provider: FELICE KNOTT Report Released Date/Time: May 08, 2025 11:40 AM Reporting Lab: [facility] [address] [address] Performing Lab: [facility] [address] [address] WBC 4.1 10*3/uL 3.6-11.2 RBC 5.21 10*6/uL 4.10-5.70 HGB 15.2 g/dL 13.1-16.8 HCT 44.9 38.2-48.4 MCV 86.2 fL 80.0-100.0 MCH 29.2 pg 27.0-34.0 MCHC 33.9 g/dL 33.0-36.0 PLT 347 10*3/uL 150-400 MPV 9.9 fL 7.5-11.2 RDW 11.8 11.8-15.1 LYMPHOCYTES, AUTO % 41 MONOCYTES, AUTO % 11 NEUTROPHILS, AUTO % 46 EOSINOPHILS, AUTO % 1 BASOPHILS, AUTO % 1 LYMPHOCYTES, ABSOLUTE 1.67 10*3/uL 0.77- 4.50 MONOCYTES, ABSOLUTE 0.45 10*3/uL 0.19-0. 80 NEUTROPHILS, ABSOLUTE 1.88 10*3/uL L 2.10- 8.00 EOSINOPHILS, ABSOLUTE 0.04 10*3/uL 0.00- 0.60 BASOPHILS, ABSOLUTE 0.02 10*3/uL 0.00-0. 20 May 14, 2025 08:39 AM [facility] HGA1C BLOOD Specimen Type: BLOOD No comment entered. Ordering Provider: FELICE KNOTT Report Released Date/Time: May 08, 2025 11:40 AM Reporting Lab: [place] [phone] Performing Lab: [address] [address] HGA1C 5.4 4.0-6.0 May 14, 2025 08:39 AM [facility] TSH W/ REFLEX FT4 (STL) PLASMA Specimen Type: PLASMA No comment entered. Ordering Provider: FELICE KNOTT Report Released Date/Time: May 08, 2025 11:40 AM Reporting Lab: [address] [address] Performing Lab: [address] [address] TSH 0.424 u[IU]/mL L 0.47-5 FREE T4(REFLEX) 0.96 ng/mL 0.7-1.48 May 14, 2025 08:39 AM [facility] VITAMIN D, 25-HYDROXY SERUM Specimen Type: SE RUM No comment entered. Ordering Provider: FELICE KNOTT Report Released Date/Time: May 08, 2025 11:40 AM Reporting Lab: [facility] [address] [address] Performing Lab: [facility] [address] [place] [phone] VITAMIN D, 25-HYDROXY 39.2 ng/mL 30-96 May 14, 2025 08:39 AM [facility] COMPREHENSIVE METABOLIC PANEL PLASMA Specimen Type: PLASMA Comment: No hemolysis noted. Ordering Provider: FELICE KNOTT Report Released Date/Time: May 08, 2025 11:40 AM Reporting Lab: [address] [address] Performing Lab: [address] [address] CREATININE 0.85 mg/dL 0.7-1.3 UREA NITROGEN 12.4 mg/dL 9.0-25.0 GLUCOSE 90 mg/dL 72-99 SODIUM 138 meq/L 136-145 POTASSIUM 4.5 meq/L 3.5-5 CHLORIDE 104 meq/L 98-107 CARBON DIOXIDE 27 meq/L 22-31 CALCIUM 9.8 mg/dL 8.4-10.4 PROTEIN 7.7 g/dL 6-8.6 ALBUMIN 4.8 g/dL 3.4-5 TOTAL BILIRUBIN 0.8 mg/dL 0.2-1.2 ALKALINE PHOSPHATASE 60 U/L 40-150 AST/SGOT 29 U/L 5-34 ALT/SGPT 21 U/L 8-40 EGFR (CKD-EPI 2020) 122.9 >60 May 14, 2025 08:22 AM [facility] URINALYSIS (STL-PB) URINE Specimen Type: URIN E No comment entered. Ordering Provider: FELICE KNOTT Report Released Date/Time: May 08, 2025 11:40 AM Reporting Lab: [facility] [address] [place] [phone] Performing Lab: [address] [place] [address] URINE COLOR Light-Yellow Yellow U.BILIRUBIN Negative mg/dL Negative U.PH 7.0 5.0-8.0 URINE WBC/HPF 1 /[HPF] 0-5 URINE RBC/HPF 1 /[HPF] 0-5 APPEARANCE Clear Clear U.NITRITE Negative mg/dL Negative MUCUS RARE /[LPF] Negative-Rare URN.GLUCOSE Normal mg/dL Negative URN.PROTEIN Negative mg/dL URN.UROBILINOGEN Normal mg/dL Normal URN.BLOOD Negative mg/dL Negative-Trace URN.KETONES Negative mg/dL Negative-Trac e URN.LEUK.EST. Negative mg/dL Negative-Tr deanna URN.SPECIFIC GRAVITY 1.021 Encounter Notes: All associated encounter notes This section contains the clinical notes associated to the Encounter. Date/Time Encounter Note(s) Provider Source May 13, 2025 01:32 PM TELEHEALTH NOTE: LOCAL TITLE: PRIMARY CARE VIDEO CONNECT [facility] STANDARD TITLE: TELEHEALTH NOTE DATE OF NOTE: MAY 13, 2025@13:32 ENTRY DATE: MAY 13, 2025@13:32:16 AUTHOR: FELICE KNOTT EXP COSIGNER: URGENCY: STATUS: COMPLETED Medicine Provider Note Modality of Care: Clinical Video Telehealth Visit conducted by Clinical Video Telehealth. Patient/surrogate provided verbal consent for video telehealth. Patient location confirmed. Emergency number confirmed. Patient Contact Details: Best contact number for backup communication with patient: Patient Chief Complaint: New patient to establish care at [facility] History of Present Illness: Mr. Rodriguez is a 24-year-old male New to the [place] system schedule VVC appointment today He report has served in the [employer] from June 19, 2017 until June 19, 2024 Report currently establish care with a community care physician Dr. Gregory Chronic back pain refer him to physical therapy that he will continue And may also need 10 units as he gave history of radioablation to lumbar spine L4-L5 as well as epidural injection, lidocaine shots L4-L5 region while in service he will provide all his medical record for our info He is taking currently muscle relaxant cyclobenzaprine 10 mg at bedtime He also mention that his history of migraine headache occur more frequently and sometimes so severe that he need to go to the doctor space room He is taking Tylenol helps his PMD was giving him some medication that he feel was for more psychiatry meds ? Do not recall the name so he refused He will provide his medical record from his PMD Dr. Gregory He also mention frequent bowel movement 3-4 times loose he self treating with fibers takes Physillum capsules 400 mg a day 3-4 cap per day Also acid reflux take omeprazole 20 mg a day Denies any blood in stool or hematochezia, no melena He is also question of obstructive sleep apnea and is scheduled to have sleep study done in the community through PMD Dr. Gregory we will forward the results for our information Denies any history of hypertension report recent blood pressure 120/78 oxygen saturation was 98 and a recent doctor visit Past Medical History: 1.Chronic Back pain 2.GERDS 3.? 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 [facility] Family history: Father alive 56 DM Mother : Healthy Allergies/Adverse Drug Reactions: Patient has answered NKA Active and Medication List: Active and Recently Outpatient Medications (excluding Supplies): No Medications Found No new medication Cyclobenzapril 10 mg at bedtime Omeprazole 20mg a s day PHYSILLUM CAPSULY 400MG 3 A DAY Non VA Medications: Medication Reconciliation Completed: Most Recent Vital Signs: No data available Physical Exam General: Labs CMP: No COMPREHENSIVE METABOLIC PANEL EO data found CBC: No CBC EO data found INR: No INR EO data found HgA1C: HGB A1C No data available Lipid Panel: No LIPID PANEL EO data found HIV: No HIV SCREENING EO data found Comment: Assessment/Plan: 1) chronic back pain Take cyclobenzaprine 10 mg at bedtime Will see physical therapy for evaluation in the community as well as for question of TENS -units 2) snoring question of obstructive sleep apnea is scheduled to have sleep study done in the community through primary physician 3) GERDs Omeprazole 20 mg a day Discussed avoid caffeinated beverages like coffee soda avoid chocolates, mint experiment spicy food GERDs precaution discussed(avoid sleeping after eating food for 2 to 3 hours) can raise at both with 4 x 4 if severe acid reflux 4) question of irritable bowel Taking Physillum cap Encouraged to eat more of fruits and vegetable 5) migraine headaches Will ask neurology for evaluation We will do baseline blood work ordered on the computer Toxic Exposure Screening Follow-Up - NS,P: Exposure Concern(s): 05/13/2025 Other Environmental Concerns - Toxic Exposure Concern Other exposures: mortor rounds Follow-up Question(s): 05/13/2025 Benefits/Claims Questions - Toxic Exposure Concern Health/Medical Questions - Toxic Exposure Concern Registry Questions - Toxic Exposure Concern VA Healthcare Enrollment Questions - Toxic Exposure Concern /caregiver has no health or medical questions related to their self-reported environmental exposure ([place]). The following connections were provided to the [place]/caregiver: Physician Assistant/Organization (VSO) [place]: ANITA T[place] [id number], [place]CK [place] [address] Screen for Embedded Fragments - L,N,P,S,U: The patient reports service in [employer] ([employer]), [employer] (OEF), [employer] [place] [employer] (OND), [employer] (OIR) or [employer] [place] [place] (OFS) The location(s) of the patient's service: [facility] SCREEN FOR EMBEDDED FRAGMENTS The patient reports no embedded fragments. Hepatitis C Testing - L,N,P,PH: Patient declines HCV lab test. HIV Screening (Routine): Patient has been offered HIV testing and has declined. I have explained that HIV testing is recommended for all adults, even if all risk factors are absent. Follow-Up: [id number] around September 13 Telephone appointment on May 20 /jania/ Felice Knott MD Staff Physician Signed: 05/14/2025 00:48 FELICE KNOTT [facility] May 13, 2025 01:16 PM TELEHEALTH NOTE: LOCAL TITLE: PCS PACT M[facility]A VIDEO CONNECT [facility] STANDARD TITLE: TELEHEALTH NOTE DATE OF NOTE: MAY 13, 2025@13:16 ENTRY DATE: MAY 13, 2025@13:16:56 AUTHOR: GISELLA ESPINAL EXP COSIGNER: URGENCY: STATUS: COMPLETED Patient Identifiers : Full Name Date of Visit conducted by Clinical Video Telehealth. V15 [facility] Video Connect/Video to Home [facility] Video Connect (VVC)/Video to home template v1.5 Visit conducted by synchronous telehealth. [place] Location/emergency number confirmed. Environment surveyed and all participants identified. Virtual conference room locked. VVC/Video to home appointment information: The following items were reviewed: - The nature of telehealth, its benefits, and risks. - Confidentiality and its limits. - The importance of having a confidential location for the service. - The emergency plan. - The appointment should be treated like an in person appointment (no smoking or driving during session, showing up fully dressed, etc.) *The Virtual Medical Room was locked for this encounter. *A survey of the environment was conducted and it is appropriate to conduct a VVC appointment. *Confirmed 's Non-VA location for this appointment: 's Home [address] [place] [address] [address] [place], [place] [address] Address and phone number verified with [place]. Address: Phone: does not have an emergency contact. *[place] was notified of right to decline Telehealth services and eligibility for other options. consented to be seen via VVC. EMERGENCY PLAN In the event of an emergency, the [place] or family will call emergency services, if capable. The Teleprovider will remain in the virtual medical room until emergency response arrives and handoff to emergency services is complete. If is unable to make emergency call, the Teleprovider is to call the national 11 service at [phone] and ask to be connected to emergency services for the [place]'s location. 's Crisis Line: Dial 988 then press 1, or text [phone] Office of Connected Care Helpdesk ([facility]): [phone] or [phone] Laterality (patient's right and/or left side) confirmed prior to intervention during video visit. Verified Provider's location and contact information for this appointment: [address] [address] x Provider Visit: Reason for Visit: New Patient: Do you have a history of any of the following? (check all that apply): Other:n/a Surgeries (type(s) and date(s)): see jlv Have you been seen by a physician, VA or private, in the last year? Yes Name and contact information for provider: [place], [place] Have you been hospitalized or seen in an ER in the last year? No Have you had a colonoscopy previously? No Have you had a PAP smear previously? N/A Have you had a Mammogram previously? No Allergy Review: ALLERGIES/ADVERSE REACTIONS - NONE FOUND Allergy list reviewed and remains current. Recent Vital Signs: Temperature: Pulse: Respiration: B/P: Pain: Wt: Ht: BMI: BMI not available without height POX: VS could not be visualized today PERSONAL HEALTH INVENTORY Notes: No data available for PHI note titles PERSONAL HEALTH INVENTORY - MAP: No data available for PHI MAP What matters most to you in your life right now? --- [place]'s Response: To get house situated WHOLE HEALTH SHARED GOALS: PERSONAL HEALTH PLAN - SHARED GOALS: No data available for: Php Shared Goals SHARED GOALS == none Would you like to discuss any personal problem, family problem, alcohol use, drug use, or a mental or emotional illness? No [facility] ([facility]), please select appointment type: [place] Video Connect (VVC) - Are you registered for [facility]? Yes - done MST Screening - V: Patient denies experiencing sexual trauma (MST). Suicide Screen - V: C-SSRS Screening Herald Suicide Severity Rating Scale (C-SSRS) screener 1. Over the past month, have you wished you were or wished you could go to sleep and not wake up? No 2. Over the past month, have you had any actual thoughts of killing yourself? No 3. Over the past month, have you been thinking about how you might do this? Response not required due to responses to other questions. 4. Over the past month, have you had these thoughts and had some intention of acting on them? Response not required due to responses to other questions. 5. Over the past month, have you started to work out or worked out the details of how to kill yourself? Response not required due to responses to other questions. 6. If yes, at any time in the past month did you intend to carry out this plan? Response not required due to responses to other questions. 7. In your lifetime, have you ever done anything, started to do anything, or prepared to do anything to end your life (for example, collected pills, obtained a gun, gave away valuables, went to the roof but didn't jump)? No 8. If YES, was this within the past 3 months? Response not required due to responses to other questions. Sexual Orientation - CP,L,N,P,PH,PS,S,U: The patient thinks of their sexual orientation as: Straight or Heterosexual Toxic Exposure Screening - CP,DI,L,NS,P,PH,S,U: The /caregiver was asked if they believe the [place] experienced any toxic exposure(s), such as Airborne Hazards and Open Burn Pit, [place] War related exposures, Agent Harding, Radiation, contaminated water at [place] or other such exposures, while serving in the [employer]. [place]/caregiver believes the was exposed to the following while serving in the Armed Forces: Other exposures: Comment: benito viera /caregiver was made aware of educational resources and printed information was offered and provided if desired. Health/Medical Questions All Veterans who report a health/medical question will receive follow-up from a clinician. For urgent or emergent questions, they were advised to follow local facility policy. Benefits/Claims Questions /caregiver was informed of local point of contact. [place] Health Care Enrollment and Eligibility Questions [place]/caregiver was informed of local point of contact. Environmental Health Registry Questions /caregiver was informed of local point of contact. Contact information for local resources: [facility] Registry Exam Program: [phone] Eligibility: [phone] BUCK [id number] ANITA [id number] [facility] Registry Exam Program: [phone] BERNADETTE Navigator: [id number] Environmental Health Coordinator: [id number] [facility] Registry Exam Program: [phone] [id number] Eligibility: [phone] [id number] Toxic Exposure Screening Follow-Up reminder is needed. Name of person notified: Nikos PTSD Screening - V: PC-PTSD-5 A PTSD screening test (PC-PTSD-5) was negative (score=3). Sometimes things happen to people that are unusually or especially frightening, horrible or traumatic. For example: A serious accident or fire a physical or sexual assault or abuse An earthquake or flood A war Seeing someone be killed or seriously injured Having a loved one through homicide or suicide 1. Have you ever experienced this kind of event? YES 2. Had nightmares about the event(s) or thought about the event(s) when you did not want to? YES 3. Tried hard not to think about the event(s) or went out of your way to avoid situations that reminded you of the event(s)? YES 4. Been constantly on guard, watchful, or easily startled? YES 5. [place] numb or detached from people, activities, or your surroundings? NO 6. [place] guilty or unable to stop blaming yourself or others for the event(s) or any problems the event(s) may have caused? NO Learning Assessment: - * This patient's patient's learning ABILITIES, BARRIERS to learning, CULTURAL and TENRIISM beliefs, and learning PREFERENCES were assessed. Following are findings of note: Patient reads with difficulty. Instructional material needs to be at low level of difficulty. Comment: glasses/contacts LANGUAGE Patient reports that Swedish is preferred language for healthcare. Patient reports learning preference is to refer to handouts. Patient reports learning preference is attending one-to-one or group demonstrations. Patient reports learning preference is looking at pictures or viewing videos. /jania/ GISELLA ESPINAL LPN LICENSED PRACTICAL NURSE Signed: 05/13/2025 13:43 GISELLA ESPINAL [facility]
--- OUTSIDE RECORDS SUMMARY | 2025-06-06 09:02 | XMS_ITS | Encounter Summary ---
Author Name [facility] Address [address], [place] [address] Care Team Providers Care Store Team Member Name Role Phone FELICE KNOTT Primary Care Provider Unavailabl e Selected Encounter This section includes the information on record at [place] for the Encounter. Date/Time Encounter Type Encounter Description Reason Provider Source Jun 05, 2025 08:30 AM SYNCH AUDIO-ONLY EST MOD 30 TELEPHONE PRIMARY CARE ICD-10-CM G43.109 Migraine with aura, not intractable, w/o status migrainosus FELICE KNOTT IHJessica Encounter Template Text not used by [place] Assessments - Encounter Diagnoses This section includes the primary and secondary diagnoses documented for the Encounter. Date/Time Primary/Secondary Diagnosis Diagnosis Name Provider Source Jun 05, 2025 08:30 AM PRIMARY Migraine with aura, not intractable, w/o status migrainosus FELICE KNOTT [facility] Plan of Treatment: Future Appointments (+ 6 months) and Future Tests (+/- 45 days) The Plan of Treatment section includes future care activities for the patient from all [place] treatmentfacilities. This section includes future appointments and future orders which are active, pending or scheduled. Future Appointments This section includes appointments that were scheduled to occur 6 months from the date of the Encounter, up to a maximum of 20 appointments. The data comes from all [place] treatment facilities. Appointment Date/Time Appointment Type Appointme nt Facility Name Sep 10, 2025 01:00 PM AMBULATORY - MEDICINE [facility] Lab Results: +/- 30 days of the encounter This section includes the Chemistry and Hematology Lab Results on record with [place] for the patient. Radiology Reports and Pathology Reports are provided separately, in subsequent sections. Lab Results This section contains the Chemistry/Hematology Results that were resulted 30 days before or 30 daysafter the date of the Encounter. Date/Time Source Result Type Result - Unit Interpretation Reference Range Specimen Type Comment May 14, 2025 08:[address] [facility] LIPID PANEL (STL) PLASMA Specimen Type: PLASMA Comment: No hemolysis noted. Ordering Provider: FELICE KNOTT Report Released Date/Time: May 08, 2025 11:40 AM Reporting Lab: [facility] [address] [place] [phone] Performing Lab: [address] [phone] CHOLESTEROL 185 mg/dL 0-200 TRIGLYCERIDE 72 mg/dL 0-150 CALCULATED LDL 117 mg/dL HDL(New) 54 mg/dL >40 May 14, 2025 08:[address] [facility] CBC BLOOD Specimen Type: BLOOD No comment entered. Ordering Provider: FELICE KNOTT Report Released Date/Time: May 08, 2025 11:40 AM Reporting Lab: [facility] [address] [phone] Performing Lab: [facility] [address] [place] [phone] WBC 4.1 10*3/uL 3.6-11.2 RBC 5.21 10*6/uL [...] 0.00-0. 20 May 14, 2025 08:[address] [facility] HGA1C BLOOD Specimen Type: BLOOD No comment entered. Ordering Provider: FELICE KNOTT Report Released Date/Time: May 08, 2025 11:40 AM Reporting Lab: [facility] [address] [place] [phone] Performing Lab: [address] [phone] HGA1C 5.4 4.0-6.0 May 14, 2025 08:[address] [facility] TSH W/ REFLEX FT4 (STL) PLASMA Specimen Type: PLASMA No comment entered. Ordering Provider: FELICE KNOTT Report Released Date/Time: May 08, 2025 11:40 AM Reporting Lab: [facility] [address] [place] [phone] Performing Lab: [address] [phone] TSH 0.424 u[IU]/mL L 0.47-5 FREE T4(REFLEX) 0.96 ng/mL 0.7-1.48 May 14, 2025 08:[address] [facility] VITAMIN D, 25-HYDROXY SERUM Specimen Type: SE RUM No comment entered. Ordering Provider: FELICE KNOTT Report Released Date/Time: May 08, 2025 11:40 AM Reporting Lab: [facility] [address] [place] [phone] Performing Lab: [address] [phone] VITAMIN D, 25-HYDROXY 39.2 ng/mL 30-96 May 14, 2025 08:[address] [facility] COMPREHENSIVE METABOLIC PANEL PLASMA Specimen Type: PLASMA Comment: No hemolysis noted. Ordering Provider: FELICE KNOTT Report Released Date/Time: May 08, 2025 11:40 AM Reporting Lab: [address] [phone] Performing Lab: [address] [phone] CREATININE 0.85 mg/dL 0.7-1.3 UREA NITROGEN 12.4 [...] 122.9 >60 May 14, 2025 08:[address] [facility] URINALYSIS ([facility]) URINE Specimen Type: URIN E No comment entered. Ordering Provider: FELICE KNOTT Report Released Date/Time: May 08, 2025 11:40 AM Reporting Lab: [address] [phone] Performing Lab: [address] [phone] URINE COLOR Light-Yellow Yellow U.BILIRUBIN Negative mg/dL [...] the Encounter. Date/Time Encounter Note(s) Provider Source Jun 05, 2025 08:59 AM PRIMARY CARE TELEPHONE ENCOUNTER NOTE: LOCAL TITLE: PRIMARY CARE PROVIDER TELEPHONE CONTACT ST STANDARD TITLE: PRIMARY CARE TELEPHONE ENCOUNTER NOTE DATE OF NOTE: JUN 05, 2025@08:59 ENTRY DATE: JUN 05, 2025@08:59:04 AUTHOR: FELICE KNOTT EXP COSIGNER: URGENCY: STATUS: COMPLETED ESTABLISHED PATIENT TELEPHONE: REASON FOR VISIT/CHIEF COMPLAINT: Follow-up migraine headaches HPI: Mr. Rodriguez is a 24-year-old young Who suffering with migraine headaches with frequent occurring almost every day Previously taking acetaminophen from PMD helping somewhat But with severe migraine headaches days he is not functional Last telephone visit I have sent him sumatriptan for abortive therapy we are neurology recommendation and also mention to him to continue Excedrin or ibuprofen Aleve OTC Today's telephone appointment for follow-up he mentioned that he has tried sumatriptan when he has a crippling severe migraine headaches and that helped him a lot he has not started Excedrin, but he mentions that his sister takes Excedrin for her migraine headaches and helps and he will planning to get that Denies any chest pain nausea vomiting blurry vision No other complaint I mention to him if he continues to have severe daily headaches call us so we can place a new neurology consult for possible prophylactic medication with knowledge understanding I also reviewed his lab results as below but he had question about after receiving the test result letter which I reviewed and discussed with him again explaining the lab results LIPID PROFILE - High cholesterol and triglycerides (lipids) are risk factors for heart disease. Your cholesterol should fall between 140 and 200, and your triglycerides levels should be less than or equal to 150. HDL is the good cholesterol and should ideally be greater than 40. LDL is the bad cholesterol and optimal levels should be less than 100 (near optimal is between 100 and 129). TRIGLYCERIDE 72 mg/dL 05/14/2025 08:39 CHOLESTEROL 185 mg/dL 05/14/2025 08:39 HDL(New) 54 mg/dL 05/14/2025 08:39 CALCULATED LDL 117 mg/dL 05/14/2025 08:39 These readings are within normal limits. HEMOGLOBIN A1C - Gives us information about your diabetes (sugar or glucose) control over the past 3 months. Your target is to keep your A1C below 6.5 %. HGA1C 5.4 % 05/14/2025 08:39 These readings are within normal limits. CBC - A complete blood count (CBC) gives important information about the kinds and numbers of cells in the blood, especially red blood cells, white blood cells, and platelets. HGB 15.2 g/dL 05/14/2025 08:39 HEMATOCRIT 44.9 % (05/14/25 08:39) PLT 347 10*3/uL 05/14/2025 08:39 WHITE BLOOD COUNT 4.1 10*3/uL (05/14/25 08:39) These readings are within normal limits. CHEM 7 - This is important information about the current status of your kidneys, liver, and electrolyte and acid/base balance as well as of your blood sugar and blood proteins. SODIUM 138 mEq/L 05/14/2025 08:39 POTASSIUM 4.5 mEq/L 05/14/2025 08:39 CHLORIDE 104 mEq/L 05/14/2025 08:39 UREA NITROGEN 12.4 mg/dL 05/14/2025 08:39 CREATININE 0.85 mg/dL 05/14/2025 08:39 CALCIUM 9.8 mg/dL 05/14/2025 08:39 CARBON DIOXIDE 27 mEq/L 05/14/2025 08:39 GLUCOSE 90 mg/dL 05/14/2025 08:39 EGFR (CKD-EPI 2020) 122.9 05/14/2025 08:39 These readings are within normal limits. LIVER FUNCTION PANEL - These are tests for liver function: PROTEIN 7.7 g/dL 05/14/2025 08:39 ALBUMIN 4.8 g/dL 05/14/2025 08:39 TOTAL BILIRUBIN 0.8 mg/dL 05/14/2025 08:39 ALKALINE PHOSPHATASE 60 U/L 05/14/2025 08:39 AST/SGOT 29 U/L 05/14/2025 08:39 ALT/SGPT 21 U/L 05/14/2025 08:39 These readings are within normal limits. TSH - Thyroid-stimulating hormone (also known as TSH or thyrotropin) is a peptide hormone synthesized and secreted by thyrotrope cells in the anterior pituitary gland, which regulates the endocrine function of the thyroid gland. TSH 0.424 L uIU/mL 05/14/2025 08:39 FREE T4(REFLEX) 0.96 ng/mL 05/14/2025 08:39 TSH results are abnormal. But free T4 within normal limit Will monitor VITAMIN D - Helps promote the proper utilization of calcium and phosphorus, thereby producing proper bone maintenance. VITAMIN D, 25-HYDROXY 39.2 ng/mL 05/14/2025 08:39 These readings are within normal limits. URINALYSIS - A urinalysis (or UA) is an array of tests performed on urine and one of the most common methods of medical diagnosis. URINALYSIS URINE COLOR Light-Yellow 05/14/2025 08:22 APPEARANCE Clear 05/14/2025 08:22 U.PH 7.0 05/14/2025 08:22 U.BILIRUBIN Negative mg/dL 05/14/2025 08:22 U.NITRITE Negative mg/dL 05/14/2025 08:22 URINE RBC/HPF 1 /HPF 05/14/2025 08:22 URINE WBC/HPF 1 /HPF 05/14/2025 08:22 MUCUS RARE /LPF 05/14/2025 08:22 These readings are within normal limits. PAST MEDICAL HISTORY: 1) Chronic back pain 2) Gastroesophageal reflux disease 3) Migraine 4) Exposure to potentially hazardous substance ([facility] [id number]) ALLERGIES: Patient has answered NKA ALLERGY REVIEW: Allergy list reviewed and remains current. MEDICATION RECONCILIATION: I have reviewed the patient's medication list with the patient and/or his/her care-director of recreation therapy. Handwritten corrections, additions and/or deletions were made to the list. Corrected Outpatient Medication List was provided to the patient/caregiver. Active Outpatient Medications (including Supplies): Active Outpatient Medications Status 1) SUMATRIPTAN SUCCINATE 25MG TAB TAKE ONE TABLET BY MOUTH ACTIVE ONE-TIME TAKE AT ONSET OF HEADACHE. MAY REPEAT AFTER 2 HOURS. NOT TO EXCEED 2 TABLETS IN 24 HOURS. Indication: FOR MIGRAINE HEADACHE ASSESSMENT/PLAN: 1) migraine headaches-take sumatriptan for severe migraine headache days only Plan as above PREVENTION & SCREENING: Tdap Immunization - L,N,P,PH,U: Phone/Virtual/Telehealth Visit - Patient educated on the need for receiving T[facility] either at [facility] or outside [facility]. TIME SPENT: 21 to 30 minutes /jania/ Felice Knott MD Staff Physician Signed: 06/05/2025 09:[address] [facility]
--- NOTE | 2025-07-02 21:25 | WPDSLEEPSTUD ---
Sleep Study Date of Study: 06/06/25 Ordering Provider: DEBBIE Mena Interpreting Physician: Myrna Murphy MD Sleep Study Type: Polysomnogram Height: 1.88 m Weight: 93.44 kg Body Mass Index: 26.4 Neck Circumference (inches): 16.5 [place]: 8 Reason for Sleep Study Excessive daytime sleepiness, loud snoring. He is a new father. Sleep History Jerry Polanco is a 24-year-old man with excessive daytime sleepiness. He rarely awakens from sleep feeling short of breath. He rarely wakes at night with heartburn, belching or coughing.??He frequently snores, and frequently snores loudly enough that others complain. He occasionally has trouble sleeping when he has a cold. He rarely wakes up gasping for breath during the night. He never has breathing problems at night observed by others. He never sweats excessively at night. He rarely notices his heart pounding or beating irregularly during the night. He rarely falls asleep during the day. He never falls asleep involuntarily, never falls asleep while driving. He never experiences loss of muscle tone with strong emotion. He never has daytime difficulty at work due to excessive sleepiness. He never feels paralyzed on waking or falling asleep. He never experiences vivid dreams upon waking or falling asleep. He never feels afraid of going to sleep. He rarely has nightmares. He never recalls his dreams. He never has thoughts racing through his mind. He never feels sad or depressed. He never feels anxiety. He never notices parts of his body jerk. He never kicks during the night. He never feels crawling or aching feelings in his legs. He never feels leg pain at night. He never has morning jaw pain, never grinds his teeth at night. He frequently feels bothered by pain during the day, rarely awakened by pain during the night. He frequently wakes up feeling stiff in the morning, and he occasionally wakes feeling sore or achy. He frequently awakens with pain in his neck, spine, or joints. Normal bedtime is 9:30 p.m., falling asleep within 15 minutes, waking twice at night to go to the bathroom. Wake time is 5:45 a.m.. He typically gets between 4 and 6 hours of sleep per night. On weekends, bedtime is later, 11:00 p.m. and his wake time is 6:30 a.m. He does not take naps in the day. Short daytime naps are not refreshing. Habits:??Tobacco: Never smoked Caffeine: 1 cup of coffee per day Alcohol: 2 beers, on occasion Recreational substances: none [facility] Past Medical History Medical History Chronic back pain Social History Social History Smoking status: Never smoker Alcohol intake: never Substance use: never Current Housing: Decline to Answer Concerned About Future Housing: Decline to Answer Difficulty Paying Gas/Electric Bills: Decline to Answer Difficulty Paying for Meds: Decline to Answer Currently Unemployed: Decline to Answer Education: Decline to Answer Difficulty w/ Childcare or Family Care: Decline to Answer Living arrangements: with family Medications Home Medications ?Medication ?Instructions ?Recorded ?Confirmed ?Type cyclobenzaprine 5 mg tablet 5 mg PO TID PRN muscle spasm #30 03/13/25 05/08/25 Rx tabs omeprazole magnesium 20 mg 20 mg PO QAM 03/13/25 05/08/25 History tablet,delayed release (Prilosec OTC) psyllium husk 0.4 gram capsule 0.4 g PO QHS 03/13/25 05/08/25 History (Metamucil) Sleep Procedure A full night polysomnogram using the LeadSift multi-channel system recorded the standard physiologic parameters including EEG, EOG, submentalis EMG, anterior tibialis EMG, EKG, body position, nasal and oral airflow using nasal pressure sensor and thermistor. Respiratory parameters of chest and abdominal movements were recorded with Respiratory Inductance Plethysmography belts. Oxygen saturation was recorded by pulse oximetry. Video monitoring was also performed. Sleep stages, periodic limb movements, and EEG arousals were scored in 30 second epochs according to the criteria of the AASM Scoring Manual. The Apnea-Hypopnea Index was calculated using CMS guidelines for definition of hypopnea while scoring respiratory events. Sleep Architecture The total recording time was 443.8 minutes. The total sleep time was 413.0 minutes. Sleep latency was 5.7 minutes. REM latency was 61.5 minutes. Sleep efficiency was 93.1%. The patient had 19 awakenings for an awakening index of 2.8. Wake after sleep onset time was 25.0 minutes. The patient spent 24.0 minutes, 5.8% of total sleep time in Stage N1. The patient spent 201.5 minutes, 48.8% in Stage N2. The patient spent 91.0 minutes, 22.0% in Stage N3. The patient spent 96.5 minutes, 23.4% in Stage REM sleep. Respiratory Analysis The patient had 3 hypopneas, no obstructive apneas, no mixed apneas, and no central apneas for an overall Apnea Hypopnea Index of 0.4. The REM Apnea Hypopnea Index was 0.6. The NREM Apnea Hypopnea Index was 0.4. The patient had a Central Apnea Hypopnea Index of 0. There were no Respiratory Effort Related Arousals. The Respiratory Disturbance Index is 0.4 events per hour. There was no evidence of [place] Respirations. Arousals There were 92 total arousals for an arousal index of 13.4. There were 50 spontaneous arousals for an index of 7.3. There was 1 arousal due to respiratory events for an index of 0.1. There were 8 arousals due to periodic limb movements for an index of 1.2. There were 25 arousals due to isolated limb movements for an index of 3.6. Periodic Limb Movements The patient had 81 isolated limb movements with an index of 11.8. The patient had 36 periodic limb movements with an index of 5.2. Patient had a total of 117 limb movements with a total limb movement index of 17.0. Oximetry Data The patient had an average oxygen saturation of 94.1% in sleep with a minimum oxygen saturation of 92.0% and a maximum oxygen saturation of 97.0%. The patient had 3 oxygen desaturations that were 4% or greater resulting in an Oxygen Desaturation Index of 0.4. The patient spent no sleep time with an oxygen saturation below 88%. Snoring Profile Snoring was frequent and mild. Cardiac Profile The EKG showed normal sinus rhythm, average pulse rate of 64.0 bpm with a minimum pulse of rate of 51 bpm and a maximum pulse rate of 91 bpm. No arrhythmias noted. EEG Profile Unremarkable, no evidence of seizures. Assessment and Plan Assessment and Plan (1) Snoring: Code(s): R06.83 - Snoring Status: Acute Assessment and Plan: This basic nocturnal polysomnogram on 06/06/2025 does not show sleep disordered breathing. The apnea-hypopnea index is 0.4 with lowest saturation 92% and mild frequent snoring. He had excellent sleep efficiency at 93% and normal sleep architecture. He did not have excessive periodic limb movements during the study. He has complaints of excessive daytime sleepiness with estimated sleep between 4 and 6 hours per night. He is getting insufficient sleep. He would benefit from more sleep. For snoring, consider positional therapy using pillows and/or elevating the head by 30 degrees. He may benefit form adhesive nasal strips such as Breathe Right to decreased airway resistance in the nasal passages. He may benefit from nasal steroids or antihistamines if he has rhinitis. Consider ENT evaluation if clinically indicated. Data The data obtained during this sleep study is adequate for interpretation. Certification This sleep study has been reviewed by a board certified sleep medicine physician.
[2025-07-02 21:26] VITALS: BMI 26.4
== END 2025-06-07 06:23 | disposition home or self-care (01) ==
LOC: ANHCSM 08:53
PROVIDERS: PCP Family Medicine; Visit Provider Physician Assistant
DX: G47.10 Hypersomnia, unspecified (principal)
CPT/HCPCS: 95810